=== PATIENT | male | born 1955 | race African-American/Black ===

== ENCOUNTER 2017-06-24 07:12 | Day surgery (SDC) | payer BC ==
[~2017-06-24] VITALS: Ht 182.9 cm; Wt 65.6 kg
[2017-06-24] MEDS ORDERED: IOHEXOL 350 MG/ML 50 ML BTL (for Cath Lab) OTHER ONE (07:13)
[2017-06-24] MEDS ORDERED: IOHEXOL 350 MG/ML 100 ML BTL (for Cath Lab) OTHER ONE (07:13)
[2017-06-24 07:44] VITALS: BP 136/82; PULSE 69; RESP 18; TEMP 97.9; O2SAT 100
[2017-06-24] MEDS ORDERED: FERR200T PO (07:52)
[2017-06-24] MEDS ORDERED: ECASA81 PO (07:52)
[2017-06-24] MEDS ORDERED: METO25TA3 PO (07:52)
[2017-06-24] MEDS ORDERED: SIMV40TA PO (07:52)
[2017-06-24] MEDS ORDERED: NITR1SUB3 SL (07:52)
[2017-06-24 08:06] LABS: AUTOMATED NEUTROPHIL # 2.9 TH/MM3 (1.8-7.7); BASOPHIL # 0.1 TH/MM3 (0-0.2); BASOPHIL % 0.9 % (0.0-2.0); EOSINOPHIL # 0.6 TH/MM3 (0-0.4); EOSINOPHIL % 10.1 % (0.0-4.0); HEMOGLOBIN 14.5 GM/DL (13.0-17.0); LYMPH % 31.6 % (9.0-44.0); LYMPHOCYTE # 1.9 TH/MM3 (1.0-4.8); MEAN CELL VOLUME 94.2 FL (80.0-100.0); MEAN CORPUSCULAR HEMOGLOBIN 32.5 PG (27.0-34.0); MEAN CORPUSCULAR HGB CONC 34.5 % (32.0-36.0); MEAN PLATELET VOLUME 8.7 FL (7.0-11.0); MONO % 9.1 % (0.0-8.0); MONOCYTE # 0.6 TH/MM3 (0-0.9); NEUT % 48.3 % (16.0-70.0); PLATELET COUNT 195 TH/MM3 (150-450); RED BLOOD COUNT 4.45 MIL/MM3 (4.50-5.90); RED CELL DISTRIBUTION WIDTH 16.4 % (11.6-17.2); WHITE BLOOD COUNT 6.1 TH/MM3 (4.0-11.0)
[2017-06-24 08:16] LABS: PROTHROMBIN TIME - PATIENT 10.3 SEC (9.8-11.6)
[2017-06-24 08:52] LABS: BICARBONATE 26.2 MEQ/L (21.0-32.0); CALCIUM 8.8 MG/DL (8.5-10.1); CREATININE 1.29 MG/DL (0.60-1.30)
[2017-06-24] MEDS ORDERED: NS 1000P @30 MLS/HR (KVO) IV SCH (09:00)
[2017-06-24] MEDS ORDERED: VERAPAMIL HCL 5 MG/2 ML VIAL ONE (10:09)
[2017-06-24] MEDS ORDERED: NITROGLYCERIN INJ 5 ML ONE (10:09)
[2017-06-24] MEDS ORDERED: HEPARIN SODIUM - IV 10,000 UNITS/10 ML VIAL ONE (10:09)
[2017-06-24] MEDS ORDERED: MIDAZOLAM HCL 2 MG/2 ML VIAL ONE (10:17)
--- NOTE | 2017-06-24 11:26 | CATHPROC ---
Heart Metabolics HIS Report Study Information Study Number Admission Scheduled Start Study Start [id number] Jun 24 2017 7:12AM 06/24/2017 Jun 24 2017 10:09AM [place] [facility] Cardiac Catheterization Admit Source Facility Department Other [facility] - [employer] Physician and Clinical Staff Initial Molina Rangel Radiation Control Technician Neeraj Quiros,GARRICK Radiation Control Technician Barrie MCCAULEY, Kapil Other cathlab, cathlab Recorder Maria Esther Phillips,EMERGENCY MEDICAL TECHNICIAN TECH2 Recorder Vickie Solorio,(R) (BS) Scrub Dimitri Clifford RCIS(BS) Procedures Performed Procedure Location (Site) Vessel Name Coronary Angiograms LCA Left Coronary Coronary Angiograms RCA Right Coronary L Heart Cath Wire insertion Radial (right) Radial Art. Equipment Time Lithograph Printer Description Size Mfg Part Number Used/Scraped TRANSDUCER, TRUWAVE [id number] 10:37 BECKHAM BIGGS * Used W/CHADWICKCK *[id number] *[id number] 10:37 TipRanks PACK, CCL CUSTOM * Used *[id number] 10:37 TipRanks SUPPORT, ARTERIAL ADULT 48094 *[id number] Used [id number] 10:43 MEDTRONIC JL 4.0 DXTERITY CATHETER FR 5 Used *[id number] 10:38 MEDTRONIC JR 4.0 DXTERITY CATHETER FR 5 [id number] Used [id number] 10:58 MEDTRONIC/AVE EBU 3.5 Z2 GUIDE CATHETER FR 6 Used *[id number] BAND, RADIAL COMPRESSION TR [id number] 11:15 VocoMD MEDICAL 24CM Used SHORT 24 *[id number] 10:37 VocoMD MEDICAL WIRE, EXCHANGE 260CM 3MMJ 260CM Used *[id number] 10:37 NAMIC MANIFOLD, 4 PORT * Used *[id number] 10:37 NYCOMED OMNIPAQUE, 350 MG, 150ML 150ML [id number] Used [id number] 10:37 HOOPER MEDICAL BLANKET,WARM AIR CCL * Used *[id number] SHEATH, FR6 TRANSRADIAL RM*[id number] 10:37 TERTURN8 MEDICAL FR 6 Used SLENDER 10CM *[id number] 10:58 VOLCANO PRIME WIRE, VERRATA 185CM 185CM [id number] *[id number] Used 11:07 VOLCANO PRIME WIRE, VERRATA 185CM 185CM [id number] *[id number] Used History: Current Medications Medication Dosage/Unit Route Frequency Last Date/Time Taken ASA NTG SL History: Allergies Allergy Reaction No Known Allergies History: Risk Factors Family History of Hypertension Dyslipidemia Previous UT Previous Heart Failure Premature CAD No No No No No Prior Valve Prior PCI Prior PCIDate Prior CABG Surgery No Yes 07/01/2015 No Cerebrovascular Peripheral Artery Chronic Lung On Dialysis Diabetes Disease Disease Disease No No No No No History: Symptoms/Diagnosis Selection Items Chest pain History: CV Disease Selection Items Known CAD History: Stress Tests Stress or Imaging Studies Performed Yes Standard Exercise Stress Test No Stress Echo No Stress Test SPECT No Stress Test CMR Stress Test CMR Result Stress Test CMR Ischemia Risk/Extent Yes Positive Intermediate Cardiac CTA Coronary Calcium Score No No History: Other Disease Selection Items CAD History: UT/CV Data Previous Cath Date 07/01/2015 History: Other Current Smoker Method No Cigars Comment 3 CIGARS A DAY X 58 YEARS Labs Hgb (g/dl) Hct (%) WBC (l/cumm) Platelets (thousands) 11.60-17.00 35.00-51.00 4.00-11.00 150.00-450.00 14.5 42 6.1 195 Glucose (mg/dl) BUN (mg/dl) Creatinine (mg/dl) BUN:Creatinine (1:x) 74.00-106.00 7.00-18.00 0.50-1.30 10.00-20.00 78 14 1.2 11.7 Na (meq/l) K (meq/l) Cl (meq/l) CO2 (mmol/L) Ca (mg/dl) 136.00-145.00 3.50-5.10 98.00-107.00 21.00-32.00 8.50-10.10 138 4.1 105 26.2 8.8 PT (sec) PTT (sec) INR (PTT:PT) 9.80-11.60 24.30-30.10 0.90-1.10 10.3 24.7 1 CPK-MB (ng/ML) 0.50-3.60 Not Drawn Medication Medication Total Dose (Bolus/Oral) Medication Total Dosage/Unit 1% XYLOCAINE 10 mL FENTANYL 25 mcg HEPARIN 4000 units RADIAL COCKTAIL 5 mL (Bolus) VERSED 0.5 mg Medications (Bolus/Oral) Medication Time Given Dosage/Unit Administered By Reason 1% XYLOCAINE 06/24/2017 10:30:14 AM 10 mL Molina Queen 10 mL 1% XYLOCAINE given in lab by Molina Queen in Right Radial via Subcutaneous. Ordered by Molina Diana. Ntg 200mcg Verapamil 2.5mg Heparin VERSED 06/24/2017 10:30:42 AM 0.5 mg Neeraj Quiros 3000U 0.5 mg VERSED given in lab by Neeraj Quiros, GARRICK via Peripheral IV. Ordered by Molina Queen R esdras: Ntg 200mcg Verapamil 2.5mg Heparin 2600U. FENTANYL 06/24/2017 10:30:57 AM 25 mcg Neeraj Quiros 25 mcg FENTANYL given in lab by Neeraj Quiros RN via Peripheral IV. Ordered by Molina Queen. RADIAL COCKTAIL 06/24/2017 10:36:05 AM 5 mL (Bolus) Molina Queen 5 mL (Bolus) RADIAL COCKTAIL given in lab by Molina Queen in Right Radial via Radial. Using [S olution Name]. Ordered by Molina Queen. 2600 UNITS HEPARIN.200 NITRO, 2.5 VERAPAMIL HEPARIN 06/24/2017 11:00:40 AM 4000 units Neeraj Quiros 4000 units HEPARIN given in lab by Neeraj Quiros RN in Left Antecubital via Peripheral IV. Ordered by Molina Queen Medication (Drip) Medication Time Given Dosage/Unit Concentration/Unit Diluent (ml) Solution IV Solutions 06/24/2017 10:12:55 AM 0 mL (IV) 250 NaCl .9 Patient arrived on IV Solutions given by Molina Queen in Left Antecubital via Peripheral IV. P ump/Drip Flow = 20 ml/hr using NaCl .9. Ordered by Molina Queen Initial Case Assessment Cardiovascular HR NIBP 73 149/79 Edema Present Skin color Skin None Normal Warm Circulatory - Right Pulses Dorsalis Pedis Femoral Radial 2 2 2 Scale (0,1,2,3,4,d) Circulatory - Left Pulses Dorsalis Pedis Femoral Radial 2 Scale (0,1,2,3,4,d) Neurological State Oriented to time-place- Alert Moves all extremities person Respiration - General Respiration Rate SpO2 (%) (B/min) 11 100 Chronological Log Time Study Chronological Log 10:10:06 Patient arrived via Bed. 10:10:13 Allens test performed on the right radial and ulnar artery. Vitals capture started with the following parameters, Patient=Adult, Interval=5 min, Initial Pr dvqvhs=083 mmHg, 10:12:37 Deflation Rate=5 mmHg, Cuff placed on Left Arm 10:12:40 Patient Name, D.O.B, / Armband Verified By R.N. 10:12:45 Consent signed by the physician and the patient and verified by the [employer] staff. 10:12:47 Patient has been NPO for More than 6Hrs. 10:12:48 NO Skin Breakdown- 10:12:49 Patient Warmer Placed on the Table. 10:12:50 Marilu Prominences Protected 10:12:54 A # 20 IV was noted in the Antecubital (left). Grade = 0 Patient arrived on IV Solutions given by Molina Queen in Left Antecubital via Peripheral IV. Pump/Drip Flow = 20 10:12:55 ml/hr using NaCl .9. Ordered by Molina Queen. 10:13:20 HR=70 bpm, NTKD=163/79 mmhg, SpO2=99 %, Resp=11 B/min, Pain=0, Dejuan=10, Reyes=2 10:15:11 Reference ECG taken 10:15:29 History and physical on the chart or being dictated. Assessment: Initial Case, HR=73 BPM, RYTF=292/79 mmhg, Edema=None, Color=Normal, Skin = Warm Right Pulses: Sergio Ped=2, Femoral=2, Radial=2 10:15:30 Left Pulses: Sergio Ped=2 Neurological: State=Alert, Ox3, KERR Respiration: Resp=11 B/min, ImL4=732 % 10:18:15 HR=73 bpm, TIFB=900/81 mmhg, HsC2=117 %, Resp=10 B/min, Pain=0, Dejuan=10, Reyes=2 10:23:10 HR=73 bpm, EXPH=284/76 mmhg, MxB9=494.0 %, Resp=10 B/min, Pain=0, Dejuan=10, Reyes=2 10:23:12 Right groin prepped with 2% chlorhexidine, and draped after a 3 min. waiting time. 10:23:50 Pressure channel 1 zeroed. 10:28:11 HR=69 bpm, VBOD=681/78 mmhg, WyY1=903.0 %, Resp=12 B/min, Pain=0, Dejuan=10, Reyes=2 Time Out. Correct patient, correct procedure, correct physician, power injector not loaded with contrast with surgical 10:29:28 team present. Time Out Concurred by MD and individual staff in procedure. 10:30:12 Case Start 10 mL 1% XYLOCAINE given in lab by Molina Queen in Right Radial via Subcutaneous. Ordere d by Bret, 10:30:14 Molina Taylor 0.5 mg VERSED given in lab by Neeraj Quiros RN via Peripheral IV. Ordered by Faustino Queen Reason: Ntg 10:30:42 200mcg Verapamil 2.5mg Heparin 2600U. 10:30:57 25 mcg FENTANYL given in lab by Neeraj Quiros RN via Peripheral IV. Ordered by Molina Queen 10:33:10 HR=82 bpm, PCJH=839/78 mmhg, SpO2=96.0 %, Resp=11 B/min, Pain=0, Dejuan=10, Reyes=2 10:36:00 Access site was Radial Artery. A SHEATH, FR6 TRANSRADIAL SLENDER 10CM FR 6 was advanced into the Radial (right) using the Pura fied Seldinger 10:36:03 technique. 5 mL (Bolus) RADIAL COCKTAIL given in lab by Molina Queen in Right Radial via Radial. Us ing [Solution Name]. 10:36:05 Ordered by Molina Queen 2600 UNITS HEPARIN.200 NITRO, 2.5 VERAPAMIL A JR 4.0 DXTERITY CATHETER FR 5 was advanced over a wire. OMNIPAQUE, 350 MG, 150ML 150ML was us ed for 10:37:55 injections. 10:38:13 HR=83 bpm, QHYZ=450/61 mmhg, SpO2=97.0 %, Resp=14 B/min Recorded Pressure: LV, HR=81, Condition=Condition 1 10:38:42 (Left Ventricle) LV 89/1/3 Recorded Pressure: LV, Ao, HR=80, Condition=Condition 1 10:38:53 (Left Ventricle) LV 92/1/3, (Aorta) Ao 90/59/73 After removing the current catheter a JL 4.0 DXTERITY CATHETER FR 5 was advanced over a WIRE, E XCHANGE 260CM 10:40:40 3MMJ 260CM. 10:43:10 HR=75 bpm, GTSK=690/71 mmhg, SpO2=98.0 %, Resp=13 B/min, Pain=0, Dejuan=10, Reyes=2 10:43:15 The LCA was injected and visualized at various angles. OMNIPAQUE, 350 MG, 150ML 150ML used . Recorded Pressure: Ao, HR=75, Condition=Condition 1 10:45:42 (Aorta) Ao 104/63/81 10:48:11 HR=68 bpm, SZYC=743/64 mmhg, SpO2=98.0 %, Resp=13 B/min, Pain=0, Dejuan=10, Reyes=2 10:53:14 HR=70 bpm, TLCX=872/68 mmhg, SpO2=98.0 %, Resp=13 B/min, Pain=0, Dejuan=10, Reyes=2 After removing the current catheter a 3DRC INFINITI CATHETER FR 5 was advanced over a WIRE, EXC HANGE 260CM 10:54:16 3MMJ 260CM. 10:57:33 The RCA was injected and visualized at various angles. OMNIPAQUE, 350 MG, 150ML 150ML used . 10:58:09 HR=77 bpm, OXXN=738/76 mmhg, SpO2=99.0 %, Resp=13 B/min, Pain=0, Dejuan=10, Reyes=2 After removing the current catheter a EBU 3.5 Z2 GUIDE CATHETER FR 6 was advanced over a WIRE, EXCHANGE 10:58:10 260CM 3MMJ 260CM. 10:59:53 Pressure channel 1 zeroed. 4000 units HEPARIN given in lab by Neeraj Quiros, GARRICK in Left Antecubital via Peripheral IV. Or dered by Molina Queen 11:00:40 G. 11:02:26 A PRIME WIRE, VERRATA 185CM 185CM was inserted via Radial (right). 11:03:10 HR=72 bpm, RUPQ=864/74 mmhg, Resp=14 B/min, Pain=0, Dejuan=10, Reyes=2 11:06:05 Wire removed 11:07:37 A PRIME WIRE, VERRATA 185CM 185CM was inserted via Radial (right). 11:08:13 HR=68 bpm, EYDO=701/75 mmhg, SpO2=98.0 %, Resp=12 B/min, Pain=0, Dejuan=10, Reyes=2 11:12:37 Flow Wire was was placed in the LAD Mid. The IFR measures 0.81 Percent. 11:13:14 HR=69 bpm, SYZX=442/74 mmhg, SpO2=99.0 %, Resp=13 B/min, Pain=0, Dejuan=10, Reyes=2 11:13:26 Wire removed 11:14:36 A WIRE, EXCHANGE 260CM 3MMJ 260CM was inserted via Radial (right). 11:14:46 Catheter was removed 11:14:48 Wire removed 11:15:14 Case End 11:16:04 Catheter(s) removed without difficulty Radial Compression Device Used. 12 mLs of air placed in BAND, RADIAL COMPRESSION TR SHORT 24 2 4CM. Affected 11:16:09 hand 98 % O2 saturation. 11:16:23 No case complications noted. 11:16:27 Bedside Report will be given. 11:16:32 A Left Heart Cath was performed. 11:16:46 DOCU called. Spoke to Alexandro. 11:18:15 HR=76 bpm, YDZU=252/70 mmhg, OvA0=530.0 %, Resp=16 B/min, Pain=0, Dejuan=10, Reyes=2 11:23:20 Vitals capture stopped. End Study - Contrast Media Used In Study Contrast Total Opened (mL) Total Used (mL) Total Wasted (mL) Omnipaque 120 120 0 End Study - Maximum Contrast Load Max Contrast Load (mL) 273.3 End Study - Radiation Exposure Fluoro Time (minutes) 10.4 End Study - Sheaths Sheaths Pulled By Sheath Hold Time (min) Dimitri Clifford End Study - Patient Disposition Complications Transferred To Interventional Outcome No [employer] Holding No attempt made
[2017-06-24] MEDS ORDERED: SODIUM CHLOR 0.9% 1000 ML INJ 1,000 ML IV SCH (11:27)
[2017-06-24] MEDS ORDERED: MISC INFORMATION XX ONE (11:30)
[2017-06-24] MEDS ORDERED: INSULIN REGULAR (IV INFUSION) 100 UNITS in SODIUM CHLORIDE 0.9% INJ 99 ML IV PRN (13:30)
[2017-06-24] MEDS ORDERED: DEXTROSE 50% IN WATER 50 ML VIAL(D50) IV PUSH PRN (13:30)
[2017-06-24] MEDS ORDERED: ceFAZolin 2 GM PREMIX 50 ML IV SCH (13:30)
[2017-06-24] MEDS ORDERED: PAPAVERINE INJ 60 MG, NITROGLYCERIN INJ 100 MCG, DILTIAZEM INJ 100 MG in SODIUM CHLORID... IRRIGATION SCH (13:30)
[2017-06-24] MEDS ORDERED: CEFAZOLIN INJ 500 MG in SODIUM CHLORIDE 0.9% IRR BTL 500 ML IRRIGATION SCH (13:30)
[2017-06-24] MEDS ORDERED: CHLORHEXIDINE GLUCONATE 4% SOLN 120 ML BTL TOPICAL SCH (13:30)
[2017-06-24] MEDS ORDERED: SODIUM CHLORIDE 0.9% FLUSH 10 ML FLUSH IV FLUSH PRN (13:30)
[2017-06-24] MEDS ORDERED: METOPROLOL TARTRATE 25 MG TAB PO SCH (13:30)
[2017-06-24] MEDS ORDERED: MUPIROCIN 2% OINT 1 APPLIC/GM SYR EACH NARE SCH (13:30)
--- NOTE | 2017-06-24 13:37 | PD.CONS ---
History of Present Illness Service CT Surgery Consult Requested By Dr. Queen Reason for Consult Multivessel CAD, chest pain Primary Care Physician No Primary Care Physician Diagnoses: (1) CAD (coronary artery disease) (2) Chest pain History of Present Illness 61 y/o male presents with exertional angina. He has a long h/o CAD s/p PCI and stent placement ~2 yrs ago in the [facility]. He states he has had exertional chest pressure/pain with mild exertion. He underwent LHC today which shows multivessel CAD with EF ~50%. He is being considered for CABG. Review of Systems Constitutional: COMPLAINS OF: Fatigue, DENIES: Diaphoretic episodes, Fever, Weight gain, Weight loss, Chills, Dizziness, Change in appetite, Night Sweats Endocrine: DENIES: Heat/cold intolerance, Polydipsia, Polyuria, Polyphagia Eyes: DENIES: Blurred vision, Diplopia, Eye inflammation, Eye pain, Vision loss , Photosensitivity, Double Vision Ears, nose, mouth, throat: DENIES: Tinnitus, Hearing loss, Vertigo, Nasal discharge, Oral lesions, Throat pain, Hoarseness, Ear Pain, Running Nose, Epistaxis, Sinus Pain, Toothache, Odynophagia Respiratory: DENIES: Apneas, Cough, Snoring, Wheezing, Hemoptysis, Sputum production, Shortness of breath Cardiovascular: COMPLAINS OF: Chest pain, DENIES: Palpitations, Syncope, Dyspnea on Exertion, PND, Lower Extremity Edema, Orthopnea, Claudication Gastrointestinal: DENIES: Abdominal pain, Black stools, Bloody stools, Constipation, Diarrhea, Nausea, Vomiting, Difficulty Swallowing, Anorexia Genitourinary: DENIES: Sexual dysfunction, Urinary frequency, Urinary incontinence, Urgency, Hematuria, Dysuria, Nocturia, Penile Discharge, Testicular Pain, Testicular Swelling Musculoskeletal: DENIES: Joint pain, Muscle aches, Stiffness, Joint Swelling, Back pain, Neck pain Integumentary: DENIES: Abnormal pigmentation, Nail changes, Pruritus, Rash Hematologic/lymphatic: DENIES: Bruising, Lymphadenopathy Immunologic/allergic: DENIES: Eczema, Urticaria Neurologic: DENIES: Abnormal gait, Headache, Localized weakness, Paresthesias, Seizures, Speech Problems, Tremor, Poor Balance Psychiatric: DENIES: Anxiety, Confusion, Mood changes, Depression, Hallucinations, Agitation, Suicidal Ideation, Homicidal Ideation, Delusions Past Family Social History Allergies: Coded Allergies: No Known Allergies (Unverified , 06/24/17) Past Medical History HTN Hyperlipidemia Reported Medications simvastatin SL NTG Ferrous sulfate Lopressor Family History Unremarkable Social History h/o tobacco abuse Denies ETOH, drugs Physical Exam Vital Signs Vital Signs Date Time Temp Pulse Resp B/P (MAP) Pulse Ox O2 Delivery O2 Flow Rate FiO2 06/24/17 11:32 99 Room Air 06/24/17 07:44 97.9 69 18 136/82 (100) 100 Physical Exam GENERAL: This is a well-nourished, well-developed patient, in no apparent distress. SKIN: No rashes, ecchymoses or lesions. Cool and dry. HEAD: Atraumatic. Normocephalic. No temporal or scalp tenderness. EYES: Pupils equal round and reactive. Extraocular motions intact. No scleral icterus. No injection or drainage. ENT: Nose without bleeding, purulent drainage or septal hematoma. Throat without erythema, tonsillar hypertrophy or exudate. Uvula midline. Airway patent. NECK: Trachea midline. No JVD or lymphadenopathy. Supple, nontender, no meningeal signs. CARDIOVASCULAR: Regular rate and rhythm without murmurs, gallops, or rubs. RESPIRATORY: Clear to auscultation. Breath sounds equal bilaterally. No wheezes , rales, or rhonchi. GASTROINTESTINAL: Abdomen soft, non-tender, nondistended. No hepato-splenomegaly , or palpable masses. No guarding. MUSCULOSKELETAL: Extremities without clubbing, cyanosis, or edema. No joint tenderness, effusion, or edema noted. No calf tenderness. Negative Homans sign bilaterally. NEUROLOGICAL: Awake and alert. Cranial nerves II through XII intact. Motor and sensory grossly within normal limits. Five out of 5 muscle strength in all muscle groups. Normal speech. Laboratory Laboratory Tests Test 06/24/17 07:50 White Blood Count 6.1 Red Blood Count 4.45 Hemoglobin 14.5 Hematocrit 42.0 Mean Corpuscular Volume 94.2 Mean Corpuscular Hemoglobin 32.5 Mean Corpuscular Hemoglobin Concent 34.5 Red Cell Distribution Width 16.4 Platelet Count 195 Mean Platelet Volume 8.7 Neutrophils (%) (Auto) 48.3 Lymphocytes (%) (Auto) 31.6 Monocytes (%) (Auto) 9.1 Eosinophils (%) (Auto) 10.1 Basophils (%) (Auto) 0.9 Neutrophils # (Auto) 2.9 Lymphocytes # (Auto) 1.9 Monocytes # (Auto) 0.6 Eosinophils # (Auto) 0.6 Basophils # (Auto) 0.1 CBC Comment DIFF FINAL Differential Comment Prothrombin Time 10.3 Prothromb Time International Ratio 1.0 Activated Partial Thromboplast Time 24.7 Blood Urea Nitrogen 14 Creatinine 1.29 Random Glucose 78 Calcium Level 8.8 Sodium Level 138 Potassium Level 4.1 Chloride Level 105 Carbon Dioxide Level 26.2 Anion Gap 7 Estimat Glomerular Filtration Rate 68 Result Diagram: 06/24/17 0750 06/24/17 0750 Imaging Last Impressions Lower Extremity Ultrasound 06/24/17 0000 Signed Impressions: Service Date/Time: Saturday, June 24, 2017 14:19 - CONCLUSION: 1. Vein mapping as above. Arden Joyner MD Chest X-Ray 06/24/17 0000 Signed Impressions: Service Date/Time: Saturday, June 24, 2017 15:30 - CONCLUSION: Negative for an acute process. Surgical clips epigastrium. Vish Joyner MD FACR Carotid Artery Ultrasound 06/24/17 0000 Signed Impressions: Service Date/Time: Saturday, June 24, 2017 14:01 - CONCLUSION: 1. Heavily calcified plaque involving both carotid arteries with less than 50%% stenoses noted. 2. Antegrade flow involving both vertebral arteries. Osvaldo Maradiaga Jr., MD Course Patient will be scheduled for CABG next week Assessment and Plan Problem List: (1) CAD (coronary artery disease) ICD Codes: I25.10 - Atherosclerotic heart disease of [place] coronary artery without angina pectoris (2) Chest pain ICD Codes: R07.9 - Chest pain, unspecified Assessment and Plan 61y/o male presents with recurrent exertional chest pain s/p PCI in the past. He was found to have multivessel CAD on LHC. CABG is recommended. Risks and benefits were discussed and he agrees to proceed. STS risk as follows: Risk Model and Variables - STS Adult Cardiac Surgery Database Version 2.81 RISK SCORES About the STS Risk Calculator Procedure: CAB Only Risk of Mortality: 0.53% Morbidity or Mortality: 8.943% Long Length of Stay: 2.905% Short Length of Stay: 59.197% Permanent Stroke: 0.867% Prolonged Ventilation: 5.563% DSW Infection: 0.261% Renal Failure: 1.579% Reoperation: 3.95% Plan CABG next week. Problem Qualifiers (1) CAD (coronary artery disease): Qualified Codes: I25.118 - Atherosclerotic heart disease of [place] coronary artery with other forms of angina pectoris (2) Chest pain: Qualified Codes: I20.8 - Other forms of angina pectoris Ivon Majano MD Jun 24, 2017 13:37
--- NOTE | 2017-06-24 15:30 | RADRPT ---
EXAM DATE/TIME: 06/24/2017 14:19 [facility] COMPARISON: US LEG BILATERAL VENOUS DOPPLER, June 24, 2017, 14:10. INDICATIONS : PreOp cardiac surgery. MEDICAL HISTORY : Peptic ulcer. CAD. SURGICAL HISTORY : None. ENCOUNTER: Initial ACUITY: 1 day PAIN SCORE: 1/10 LOCATION: Bilateral legs. GREATER SAPHENOUS VEIN THIGH: PROXIMAL: Right 4 mm Left 4 mm MID: Right 3 mm Left 3 mm DISTAL: Right 3 mm Left 2 mm CALF: PROXIMAL: Right Non-visualized Left 2 mm MID: Right 2 mm Left 1 mm DISTAL: Right Non-visualized Left 1 mm FINDINGS: The venous system of the lower extremities are patent by color Doppler imaging. Measurements of the leg veins (in mm) are listed above. CONCLUSION: 1. Vein mapping as above. Arden Joyner MD on June 24, 2017 at 15:28 Board Certified Radiologist. This report was verified electronically.
--- NOTE | 2017-06-24 15:33 | RADRPT ---
EXAM DATE/TIME: 06/24/2017 14:10 [facility] COMPARISON: US CAROTID ARTERIES, June 24, 2017, 14:01. INDICATIONS : PreOp cardiac surgery. MEDICAL HISTORY : Peptic ulcer. CAD. SURGICAL HISTORY : None. ENCOUNTER: Initial ACUITY: 1 day PAIN SCORE: 1/10 LOCATION: Bilateral legs. TECHNIQUE: Venous ultrasound of the left and right leg was performed from the inguinal ligament to the proximal calf. Real-time, color Doppler and spectral tracing, compression and augmentation techniques were us ed. FINDINGS: RIGHT LEG: There is normal compressibility of the deep venous system from the inguinal region to the proximal ca lf. No echogenic clot is seen in the lumen of the common femoral, femoral, popliteal, and posterior tibial veins. There is a normal response of the venous system to proximal and distal augmentation an d respiration. LEFT LEG: There is normal compressibility of the deep venous system from the inguinal region to the proximal ca lf. No echogenic clot is seen in the lumen of the common femoral, femoral, popliteal, and posterior tibial veins. There is a normal response of the venous system to proximal and distal augmentation an d respiration. CONCLUSION: 1. No DVT identified. Arden Joyner MD on June 24, 2017 at 15:30 Board Certified Radiologist. This report was verified electronically.
--- NOTE | 2017-06-24 15:36 | RADRPT ---
EXAM DATE/TIME: 06/24/2017 14:01 [facility] COMPARISON: No previous studies available for comparison. INDICATIONS : PreOp cardiac surgery. MEDICAL HISTORY : Peptic ulcer. CAD. SURGICAL HISTORY : None. ENCOUNTER: Initial ACUITY: 1 day PAIN SCORE: 10 LOCATION: Bilateral neck PEAK SYSTOLIC VELOCITIES (cm/sec): ICA/CCA RATIO: Right: 1.1 Left: 1.2 ICA: Right: 100 Left: 116 CCA: Right: 90 Left: 95 ECA: Right: 52 Left: 74 VERTEBRAL: Right: 60 antegrade Left: 74 antegrade Elevated flow velocities and ICA/CCA ratios have been found to correlate with increased degrees of vessel stenosis, calculated as percentage of diameter relative to a normal segment of distal ICA/CCA FINDINGS: RIGHT CAROTID: Calcified plaque is seen involving the carotid bulb and proximal ICA. The calcified nature generates shadowing which limits the grayscale analysis. ICA waveform is normal. LEFT CAROTID: Calcified plaque is seen involving the carotid bulb and proximal ICA. The calcified nature generates shadowing which limits the grayscale analysis. ICA waveform is normal. VERTEBRAL ARTERIES: Antegrade flow is seen in both vertebral arteries. MISCELLANEOUS: None. CONCLUSION: 1. Heavily calcified plaque involving both carotid arteries with less than 50% stenoses noted. 2. Antegrade flow involving both vertebral arteries. Osvaldo Maradiaga Jr., MD on June 24, 2017 at 15:31 Board Certified Radiologist. This report was verified electronically.
--- NOTE | 2017-06-24 15:40 | RADRPT ---
EXAM DATE/TIME: 06/24/2017 15:30 [facility] COMPARISON: No previous studies available for comparison. INDICATIONS : Short of breath, chest pain MEDICAL HISTORY : Myocardial infarction. SURGICAL HISTORY : Coronary artery stent. stomach ulcer surgery years ago. ENCOUNTER: Initial ACUITY: 1 day PAIN SCORE: 5/10 LOCATION: Bilateral chest FINDINGS: PA and lateral views of the chest demonstrate the lungs to be symmetrically aerated without evidence of mass, infiltrate or effusion. The cardiomediastinal contours are unremarkable. Osseous structure s are intact. CONCLUSION: Negative for an acute process. Surgical clips epigastrium. Vish Joyner MD FACR on June 24, 2017 at 15:37 Board Certified Radiologist. This report was verified electronically.
--- NOTE | 2017-06-24 16:10 | ECHRPT ---
Indication: chest pain CONCLUSIONS The left ventricular systolic function is normal with an estimated ejection fraction in the range of 55-60%. Normal left ventricular size. Wall thickness is normal. No regional wall motion abnormalities are present. The pulmonary valve is not well visualized. BP: / HR: Rhythm: Sinus MEASUREMENTS (Male / Female) Normal Values Technical Quality:Good 2D ECHO LV Diastolic Diameter PLAX 4.7 cm 4.2 - 5.9 / 3.9 - 5.3 cm LV Systolic Diameter PLAX 3.2 cm IVS Diastolic Thickness 0.9 cm 0.6 - 1.0 / 0.6 - 0.9 cm LVPW Diastolic Thickness 0.9 cm 0.6 - 1.0 / 0.6 - 0.9 cm LV Relative Wall Thickness 0.4 RV Internal Dim ED PLAX 2.7 cm LVOT Diameter 2.2 cm LA Systolic Diameter LX 2.9 cm 3.0 - 4.0 / 2.7 - 3.8 cm LV Ejection Fraction MOD 4C 58.3 % LV Ejection Fraction 4C AL 64.1 % M-MODE Aortic Root Diameter MM 2.7 cm AV Cusp Separation MM 2.2 cm DOPPLER AV Peak Velocity 99.1 cm/s AV Peak Gradient 3.9 mmHg LVOT Peak Velocity 61.7 cm/s LVOT Peak Gradient 1.5 mmHg AV Area Cont Eq pk 2.4 cm MV Area PHT 3.3 cm Mitral E Point Velocity 61.2 cm/s Mitral A Point Velocity 78.0 cm/s Mitral E to A Ratio 0.8 LV E' Lateral Velocity 7.3 cm/s Mitral E to LV E' Lateral Ratio 8.4 LV E' Septal Velocity 6.0 cm/s Mitral E to LV E' Septal Ratio 10.1 PV Peak Velocity 82.8 cm/s PV Peak Gradient 2.7 mmHg FINDINGS LEFT VENTRICLE The left ventricular systolic function is normal with an estimated ejection fraction in the range of 55-60%. Normal left ventricular size. Wall thickness is normal. No regional wall motion abnormalities are present. RIGHT VENTRICLE Normal right ventricular size and systolic function. LEFT ATRIUM The left atrial size is normal. RIGHT ATRIUM The right atrial size is normal. ATRIAL SEPTUM Normal atrial septal thickness without atrial level shunting by limited color doppler interrogation. AORTA The aortic root and proximal ascending aorta are normal in size on limited imaging. MITRAL VALVE Structurally normal mitral valve. No mitral valve stenosis or regurgitation. AORTIC VALVE Trileaflet aortic valve. No aortic valve stenosis or regurgitation. TRICUSPID VALVE Structurally normal tricuspid valve. No tricuspid valve stenosis or regurgitation. PULMONARY VALVE The pulmonary valve is not well visualized. VESSELS The inferior vena cava is normal in size. PERICARDIUM No pericardial effusion. Paul Minor MD (Electronically Signed) Final Date:24 June 2017 16:09
[2017-06-24 16:16] LABS: BILIRUBIN, URINE NEG (NEG); BLOOD, URINE NEG (NEG); GLUCOSE,URINE NEG (NEG); KETONE, URINE NEG (NEG); NITRITE,URINE NEG (NEG); SQUAMOUS EPITHELIAL CELL URINE <1 /hpf (0-5); URINE COLOR LIGHT-YELLOW (YELLW/STRAW); URINE LEUKOCYTE ESTERASE NEG (NEG)
--- NOTE | 2017-06-24 19:25 | EKG ---
Date Performed: 06/24/2017 Time Performed: 08:10:14 PTAGE: 61 years EKG: Sinus rhythm . Anterolateral ST elevation - possible early repolarization Borderline ECG NO PREVIOUS TRACING DOCTOR: Isabel Harrison Interpretating Date/Time 06/24/2017 19:23:09
[2017-06-24] MEDS ORDERED: SODIUM CHLORIDE 0.9% FLUSH 10 ML FLUSH IV FLUSH SCH (21:00)
--- NOTE | 2017-06-28 11:39 | MA ---
cc: SHI MASTERS VINCENT G. DO DATE 06/24/2017 PROCEDURE Left heart catheterization, coronary angiogram, ultrasound-guided access, IFR LAD, moderate sedation 45 minutes. PREPROCEDURE DIAGNOSIS Unstable angina with history of coronary artery disease, abnormal stress test. POSTPROCEDURE DIAGNOSIS Multivessel coronary artery disease. MEDICATIONS 1. Versed 0.5 mg. 2. Fentanyl 25 mcg. 3. Heparin 6600 units. 4. Verapamil 2.5 mg. 5. Nitro 200 mcg. CONTRAST USED 120 cc. FLUOROSCOPY 10.4 minutes. SEDATION Moderate sedation, 45 minutes. ESTIMATED BLOOD LOSS 10 cc. PROCEDURAL SUMMARY Robert Prabhakar is a pleasant 61-year-old male who sees my partner Dr. Masters in the office and was recommended cardiac catheterization as he has had episodes of continual chest pain on antianginal medications. The risks, benefits and alternatives were explained to him and he consented as such. He was brought to the lab and prepped in the usual sterile fashion. The right radial artery was accessed using a modified Seldinger technique and placement of a 5/6 Nepali Slender sheath. This was easily aspirated and flushed. A JR4 was advanced over a J-wire to the ascending aorta and across the aortic valve for measurement of left ventricular pressure. This was pulled back across the aortic valve showing no significant gradient of aortic stenosis. The JR4 was unable to cannulate the right coronary artery so this was exchanged out for a JL4 which was used for selective angiography of the left coronary artery system. The JL4 was then exchanged for a 3-D RC which was used for nonselective angiography of the right coronary artery system. The patient was noted to have multiple areas of concern and I felt that it was reasonable to further investigate the LAD for its significance as it was a moderate lesion and if positive, consider coronary artery bypass grafting. An EBU 3.5 guide catheter was engaged in the left main. Additional heparin was given as an anticoagulant. An IFR wire was then placed into the distal LAD. The IFR was measured at 0.81 showing significant stenosis. The wire was removed. Final angiogram showed no disruption of coronary anatomy. The guide was removed over a J-wire. The patient left the catholic priest cardiovascularly stable. FINDINGS Left Main: Normal size vessel with 40% disease distally. It bifurcates into an LAD and circumflex. LAD: Normal size vessel. In the proximal portion there appears to be a 70-80% lesion. IFR of this was 0.81 showing significant stenosis. It gives off two small diagonals with the first one having 70% disease in the proximal portion and the second one having no significant disease. Left Circumflex: Normal size vessel. There is a stent noted in the proximal portion with 90% in-stent restenosis. It gives off one small first obtuse marginal with two larger second and third obtuse marginals. The second obtuse marginal is occluded with [id number] collaterals. RCA: 100% occluded in the midportion. There are noted collaterals from [id number] filling the distal posterolateral and posterior descending arteries. LVEDP is 3. IMPRESSION 1. Unstable angina. 2. Multivessel coronary artery disease. RECOMMENDATIONS 1. Mr. Prabhakar appears to have multivessel coronary artery disease with significant disease in all three vessels. Because of this he will be recommended coronary artery bypass grafting. 2. He will be seen by Dr. Majano in consultation for consideration of CABG. Will plan on checking a 2-D echo to look at his overall left ventricular function, cardiac structure and possible valvulopathies in anticipation of surgery. 3. Will plan on discharging him home and coming back electively for surgery. I instructed him that if he has further chest pain he should get to the emergency room immediately. 4. He will follow-up with Dr. Masters post surgery. Thank you for allowing me to see Robert Prabhakar. If there are any questions, please do not hesitate to call. Molina Queen DO VGP/BT /8:33 AM /11:22 AM
== END 2017-06-24 18:01 | disposition home or self-care (01) ==
LOC: HDOC 07:12 → HDIC 07:12 → HDOC 18:01
PROVIDERS: ATTEND Nuclear Medicine Nuclear Cardiology
DX: I25.110 Atherosclerotic heart disease of native coronary artery with unstable angina pectoris (principal); I25.2 Old myocardial infarction; I10 Essential (primary) hypertension; K27.9 Peptic ulcer, site unspecified, unspecified as acute or chronic, without hemorrhage or perforation; E78.5 Hyperlipidemia, unspecified; R06.02 Shortness of breath; I65.23 Occlusion and stenosis of bilateral carotid arteries; Z95.5 Presence of coronary angioplasty implant and graft; Z87.891 Personal history of nicotine dependence
CPT/HCPCS: 71046; 80048; 81001; 85025; 85610; 85730; 87641; 93005; 93306; 93458; 93571; 93880; 93970; 93998; 94010; 99152; 99153; C1769; C1887; C1893; J1644; J2250; J3010; Q9967

== ENCOUNTER 2017-07-04 05:19 | Inpatient (IN) | payer BC ==
[~2017-07-04] VITALS: Ht 182.9 cm; Wt 65.5 kg
[2017-07-04] VITALS (12 sets, daily range): BP systolic 93–126; BP diastolic 49–76; PULSE 86–96; RESP 10–18; TEMP 97.5–97.8; O2SAT 87–98
[~2017-07-04 05:19] MED LIST: ECASA81 PO; FERR200T PO; METO25TA3 PO; MULT-207 PO; SIMV40TA PO
[2017-07-04] MEDS ORDERED: SODIUM CHLORID 0.9% 500 ML IV PRN (05:45)
[2017-07-04] MEDS ORDERED: PAPAVERINE 60 MG-NITROGLYCERIN 100 MCG-DILTIAZEM 100 MG in NS 100 ML IRRIGATION SCH ×4 (05:45)
[2017-07-04] MEDS ORDERED: CHLORHEXIDINE GLUCONATE 4% SOLN 120 ML BTL TOPICAL SCH (05:45)
[2017-07-04] MEDS ORDERED: METOPROLOL TARTRATE 25 MG TAB PO SCH (05:45)
[2017-07-04] MEDS ORDERED: INSULIN REGULAR 100 UNITS in NS 100 ML IV PRN (05:45)
[2017-07-04] MEDS ORDERED: LACTATED RINGER'S 1000 ML IV PRN (05:45)
[2017-07-04] MEDS ORDERED: ceFAZolin 2 GM PREMIX 50 ML IV SCH (05:45)
[2017-07-04] MEDS ORDERED: POVIDONE IODINE 5% (ANTISEPSIS KIT) 4 APPLICATIONS EACH NARE PRN (05:45)
[2017-07-04] MEDS ORDERED: METOPROLOL TARTRATE 25 MG TAB PO PRN (05:45)
[2017-07-04] MEDS ORDERED: CEFAZOLIN 500 MG in NS IRR BTL 500 ML IRRIGATION SCH (05:45)
[2017-07-04] MEDS ORDERED: CHLORHEXIDINE GLUCONATE 2 % 1 PACK (2 CLOTHS) TOPICAL PRN (05:45)
[2017-07-04] MEDS ORDERED: DEXTROSE 50% IN WATER 50 ML VIAL(D50) IV PUSH PRN ×2 (06:00→11:15)
[2017-07-04] MEDS ORDERED: methylPREDNISolone SOD SUCC 125 MG/2 ML VIAL ONE (06:38)
[2017-07-04] MEDS ORDERED: HEPARIN SODIUM - SQ 10,000 UNITS/ML VIAL ONE (06:38)
[2017-07-04] MEDS ORDERED: VANCOMYCIN HCL 1000 MG VIAL ONE (06:39)
[2017-07-04] MEDS ORDERED: ceFAZolin 2 GM PREMIX 50 ML ONE (06:39)
[2017-07-04] MEDS ORDERED: SUGAMMADEX SODIUM 200 MG/2 ML VIAL IV PUSH ONE (06:42)
[2017-07-04] MEDS ORDERED: ACETAMINOPHEN 1000 MG/100 ML 100 ML IV ONE (06:42)
[2017-07-04] MEDS ORDERED: fentaNYL CITRATE 1000 MCG/20 ML VIAL ONE ×2 (06:42→08:40)
[2017-07-04] MEDS ORDERED: MIDAZOLAM HCL 5 MG/5 ML VIAL ONE (06:42)
[2017-07-04] MEDS ORDERED: CARDIOPLEGIC IRR 2,000 ML ONE (07:01)
[2017-07-04] MEDS ORDERED: POTASSIUM CHLORIDE 40 MEQ/20 ML VIAL ONE (07:01)
[2017-07-04] MEDS ORDERED: ALBUMIN 25% INJ 50 ML IV ONE (07:02)
[2017-07-04] MEDS ORDERED: HEPARIN SODIUM - IV 10,000 UNITS/10 ML VIAL ONE (07:02)
[2017-07-04] MEDS ORDERED: MANNITOL INJ 100 ML ONE (07:03)
[2017-07-04] MEDS ORDERED: LACTATED RINGER'S 1000 ML INJ 500 ML IV PRN (11:14)
[2017-07-04] MEDS ORDERED: CALCIUM CHLORIDE INJ 1 GM in SODIUM CHLORIDE 0.9% INJ 100 ML IV PRN (11:15)
[2017-07-04] MEDS ORDERED: ACETAMINOPHEN 650 MG SUPP RECTAL PRN (11:15)
[2017-07-04] MEDS ORDERED: RESP: RACEPINEPHRINE 2.25% 0.5 ML NEB NEB PRN (11:15)
[2017-07-04] MEDS ORDERED: ACETAMINOPHEN 325 MG TAB PO PRN (11:15)
[2017-07-04] MEDS ORDERED: hydrALAZINE HCL 20 MG/ML VIAL IV PUSH PRN (11:15)
[2017-07-04] MEDS ORDERED: SODIUM CHLORIDE 0.9% FLUSH 10 ML FLUSH IV FLUSH PRN (11:15)
[2017-07-04] MEDS ORDERED: SODIUM BICARBONATE 8.4% SOLN 50 MEQ/50 ML VIAL IV PUSH PRN ×2 (11:15)
[2017-07-04] MEDS ORDERED: POTASSIUM CHLORIDE 20 MEQ CONTROLLED RELEASE TAB PO PRN ×2 (11:15)
[2017-07-04] MEDS ORDERED: CALCIUM CHLORIDE 10% 1 GRAM/10 ML VIAL IV PUSH PRN (11:15)
[2017-07-04] MEDS ORDERED: CLEVIDIPINE INJ 50 ML IV PRN (11:15)
[2017-07-04] MEDS ORDERED: MAGNESIUM SULFATE INJ 2 GM in SODIUM CHLORIDE 0.9% INJ 100 ML IV PRN ×4 (11:15)
[2017-07-04] MEDS ORDERED: METOPROLOL TARTRATE 5 MG/5 ML VIAL IV PUSH PRN (11:15)
[2017-07-04] MEDS ORDERED: Post-op Orders (for Pharmacy) OTHER ONE (11:15)
[2017-07-04] MEDS ORDERED: RESP: ALBUTEROL 2.5 MG/IPRATROPIUM 0.5 MG NEB (PRN) NEB (11:15)
[2017-07-04] MEDS ORDERED: POTASSIUM CHLOR 20 MEQ PREMIX 100 ML IV PRN ×3 (11:15)
[2017-07-04] MEDS ORDERED: INSULIN REGULAR (IV INFUSION) 100 UNITS in SODIUM CHLORIDE 0.9% INJ 99 ML IV PRN (11:15)
[2017-07-04] MEDS ORDERED: ONDANSETRON HCL 4 MG/2 ML VIAL IV PUSH PRN (11:15)
[2017-07-04] MEDS ORDERED: KETOROLAC TROMETHAMINE 30 MG/ML (IVP) VIAL IV PUSH PRN (11:15)
[2017-07-04] MEDS ORDERED: ALBUMIN 5% INJ 250 ML IV PRN (11:15)
--- NOTE | 2017-07-04 11:29 | PD.OP ---
cc: Ivon Majano MD; Molina Queen DO Operative Report Date of Surgery: Jul 04, 2017 Preoperative Diagnosis: (1) CAD (coronary artery disease) (2) Chest pain Postoperative Diagnosis: same Procedure: CABG x 4 CASTANEDA to LAD - good SVG to D1 - good SVG to OM2 - good SVG to PDA - fair B EVH Anesthesia: Dr. Pena Surgeon: Ivon Majano Groundsman(s): Genevieve Loredo, DAMIEN Operation and Findings: The risks, benefits, complications, treatment options, and expected outcomes were discussed with the patient. The possibilities of reaction to medication, pulmonary aspiration, perforation of viscus, bleeding, recurrent infection, the need for additional procedures, failure to diagnose a condition, and creating a complication requiring transfusion or operation were discussed with the patient. The patient concurred with the proposed plan, giving informed consent. The site of surgery properly noted/marked. The patient was taken to Operating Room, identified as Robert Prabhakar and the procedure verified as CABG, EVH, ELLA. A Time Out was held and the above information confirmed. Standard monitoring lines and Santiago catheter were placed. General anesthesia was induced. The patient was prepped and draped in a sterile fashion. A median sternotomy was performed and electrocautery was used to obtain hemostasis. The left internal mammary artery was procured as a pedicle from the 7th rib to the 1st rib in the usual manner. Simultaneously left and right greater saphenous vein was procured from the left and right legs using a minimally invasive endoscopic technique. The vein was prepared for anastomosis and the leg wound was irrigated and closed in 2 layers. The pericardium was opened and a pericardial sling was created using interrupted 0 silk sutures. The patient was heparinized for cardiopulmonary bypass and the distal mammary pedicle was instrumented for anastomosis. The heart was instrumented for cardiopulmonary bypass in the usual manner. Antegrade blood cardioplegia was employed. The patient was placed on cardiopulmonary bypass. An aortic cross-clamp was applied and the heart was arrested using cold blood cardioplegia. Antegrade cardioplegia was administered after he each anastomosis. After adequate arrest, the distal right coronary circulation was investigated and the PDA was opened with a Omaha blade and found to be a 1 millimeter fair target. Saphenous vein was approximated to the PDA artery using a running 7 0 Prolene suture. The graft was measured for length and orientation and the proximal anastomosis was constructed to the ascending aorta using a running 5 0 Prolene suture after creating an aortotomy with a 5 millimeter punch. The OM2 artery was opened with a Omaha blade and found to be a 1.5 millimeter good target. Saphenous vein was approximated to the OM2 artery using a running 7 0 Prolene suture. The graft was measured for length and orientation and the proximal anastomosis was constructed to the ascending aorta using a running 5 0 Prolene suture after creating an aortotomy with a 5 millimeter punch. The 1st diagonal artery was then opened with a Omaha blade and found to be a 1.5 millimeter good target. Saphenous vein was approximated to the D1 artery using a running 7 0 Prolene suture. The graft was measured for length and orientation and was suspended from the pericardium. The distal LAD was opened with a Omaha blade and found to be a 1.5 millimeter good target. The left internal mammary artery was approximated to the LAD using a running 7 0 Prolene suture. The pedicle was attached to the epicardium using interrupted 5 0 silk suture. The patient was systemically rewarmed and received a hotshot dose of warm blood cardioplegia. The aorta was vented and the proximal anastomosis to the OM1 graft was accomplished using a running 5 0 Prolene suture after creating an aortotomy was a 5 millimeter punch. The cross-clamp was removed and all proximal and distal anastomoses were examined for hemostasis. The patient was weaned from cardiopulmonary bypass. Protamine was given. There was no adverse reaction. Decannulation was carried out without incident. Wound was checked for hemostasis which was obtained using electrocautery. A 36 Turkmen mediastinal and 32 Turkmen left pleural chest tubes were placed and secured to the skin with 0 silk suture. The sternum was closed with stainless steel wire. The fascia was closed with 1. PDS. The subcutaneous tissue was closed using a running 2-0 Vicryl suture. The skin was closed with 4-0 Monocryl. Sterile dressings were placed. At the end of the operation, all sponge, instruments, and needle counts were correct. The patient was transferred to the CVICU in stable condition. Findings: small PDA. Severe COPD XC: 65 min CPB: 72 min Drains: mediastinal x 1 pleural x 1 Complications: none Disposition: to CVICU in stable condition Ivon Majano MD Jul 04, 2017 11:29
[2017-07-04] MEDS ORDERED: ceFAZolin INJ 1,000 MG VIAL ONE (11:58)
[2017-07-04] MEDS ORDERED: PHENYLEPH/NS 1000 MCG/10 ML SYR IV ONE (12:00)
[2017-07-04] MEDS ORDERED: NS 500 ML (EXCEL BAG) INJ 500 ML IV ONE (12:00)
[2017-07-04] MEDS ORDERED: PHENYLEPHRINE HCL 10 MG/ML VIAL IV ONE (12:00)
[2017-07-04] MEDS ORDERED: SODIUM CHLOR 0.9% IV ONE (12:00)
[2017-07-04] MEDS ORDERED: PROTAMINE SULFATE 250 MG/25 ML VIAL IV ONE (12:00)
[2017-07-04] MEDS ORDERED: ePHEDrine/NS 25 MG/5 ML SYRINGE IV ONE (12:00)
[2017-07-04] MEDS ORDERED: HEPARIN SODIUM - SQ 10,000 UNITS/ML VIAL SQ ONE (12:00)
[2017-07-04] MEDS ORDERED: NORMOSOL R INJ 2,000 ML IV ONE (12:00)
[2017-07-04] MEDS ORDERED: MAGNESIUM SULFATE 1 GM/2 ML VIAL IV ONE (12:00)
[2017-07-04] MEDS ORDERED: DEXMEDETOMIDINE HCL 200 MCG/2 ML VIAL IV ONE (12:00)
[2017-07-04] MEDS ORDERED: CALCIUM CHLORIDE 10% SOLN 1 GRAM/10 ML SYR IV ONE (12:00)
[2017-07-04] MEDS ORDERED: SODIUM BICARBONATE 8.4% INJ 50 MEQ/50 ML SYR IV ONE (12:00)
[2017-07-04] MEDS ORDERED: AMIODARONE HCL 150 MG/3 ML VIAL IV ONE (12:00)
[2017-07-04] MEDS ORDERED: LACTATED RINGER'S 1000 ML INJ 3,000 ML IV ONE (12:00)
[2017-07-04] MEDS ORDERED: VECURONIUM BROMIDE 10 MG VIAL IV ONE (12:00)
[2017-07-04] MEDS ORDERED: SODIUM CHLORIDE 0.9% INJ 200 ML IV ONE (12:00)
[2017-07-04] MEDS ORDERED: AMINOCAPROIC ACID INJ 250 MG/ML 20 ML VIAL IV ONE (12:00)
--- NOTE | 2017-07-04 12:55 | RADRPT ---
EXAM DATE/TIME: 07/04/2017 12:17 [facility] COMPARISON: No previous studies available for comparison. INDICATIONS : Post CABG MEDICAL HISTORY : Myocardial infarction. SURGICAL HISTORY : CABG. Coronary artery stent. gastric ulcer surgery ENCOUNTER: Subsequent ACUITY: 2 days PAIN SCORE: Non-responsive. LOCATION: Bilateral chest FINDINGS: The patient is status post sternotomy. ET tube, NG tube, right internal jugular central line and left chest tube are well placed. No pneumothorax is seen. The heart size is normal. The lungs are clear. CONCLUSION: Tubes and lines in good position. Kale Dee MD on July 04, 2017 at 12:51 Board Certified Radiologist. This report was verified electronically.
--- NOTE | 2017-07-04 13:45 | PD.CAR.PN ---
CVT Progress Note Subjective/Hospital Course: 61 y/o male hx of exertional angina. He has a long h/o CAD s/p PCI and stent placement ~2 yrs ago in the [facility]. He states he has had exertional chest pressure /pain with mild exertion. He underwent LHC today which shows multivessel CAD with EF ~50%. He is being considered for CABG. Past Medical History HTN Hyperlipidemia GI Bleed, OA, Gout surgery: 07/04 CABG x 4, CASTANEDA to LAD - good, SVG to D1 - good, SVG to OM2 - good , SVG to PDA - fair, B EVH Objective: Vital Signs Date Time Temp Pulse Resp B/P (MAP) Pulse Ox O2 Delivery O2 Flow Rate FiO2 07/04/17 12:01 96 50 07/04/17 06:15 97.6 65 16 122/74 (90) 100 (1) CAD (coronary artery disease) (2) S/P CABG x 4 (3) Gout (4) History of GI bleed (5) Chest pain Elizabeth Mcdaniels Jul 04, 2017 13:45
--- NOTE | 2017-07-04 13:49 | HHI.FF ---
Face to Face Verification Diagnosis: (1) CAD (coronary artery disease) (2) Chest pain (3) Gout (4) History of GI bleed (5) S/P CABG x 4 Speech Therapy Instructions: Incentive spirometry Q1 hr x 10, while awake, also use acapella device hourly whole awake Sternal Breast Bone Precautions: NO pushing or pulling, ( pt must use sternal pillow to support chest with all activities and with coughing ( takes up to 3 months breast bone to heal ) Daily incision care: ok to shower daily, no tub bath. Wash all incisions with liquid dial soap, clean wash cloth to each site, rinse and pat dry. Observe for any signs of infection, such as drainage which is dark yellow, tripp, green or foul smelling. Immediately report to the surgeon any drainage from the chest incision, or legs, and for any abnormal drainage from the chest tube sites. Notify surgeon if any temp >101.5 degrees F. When specialty dressing removed/ or if you do not have one, continue to shower daily as above, then rinse and pat incision dry and paint with betadine daily x 5 days. Allow steri strips to fall off if you have any. Avoid lotions, creams, salves, oils, etc. for the first month Please see attached forms for additional instructions regarding post Open Heart specialty wound vacuum dressings. DELMI or Prevena , Dressing to be removed by Nursing staff on __07/11/[address] Majano patients , please obtain CBC, BMP, PA & Lat CXR in 2 weeks, results to Dr. Majano ( prescription will be given) ( ) (Tele: [phone]) , F/U appointment: as per CT instructions: PCP in 2 weeks, CV surgeon 2 weeks, [facility] 3-4 weeks For any questions regarding incisions/ dressing / meds / post op care or above Symptoms, Saturday 8am-5pm Heart & Vascular Surgery Office ( Dr. Cr & Dr. Majano), After Hours / Nights (5pm -8am) Weekends and Holidays Please call [facility] Card[facility] (CIC) Charge Nurse [facility] Nursing Order: Signs/symptoms of disease process Medication education-adverse effect Wound care and dressing changes Nursing assessment with vital signs Instructions: Heart and Vascular Surgery patients *Special attention to sternal dressing Mandatory frequency Assess and evaluation, 4 days in a row The next week 3X week 2 times a week for 4 weeks 1 time a week for 5 weeks Schedule Heart and Vascular patients for full 60 day certification period Initial visit Review Open Heart Surgery Discharge Instructions (Sternal precautions, Activity, Elastic hose, Incision care, Driving, Incentive spirometry, Smoking, [place], Work and other) Need Betadine to paint incision Medication reconciliation Importance of follow up care/ check on appointments Make calendar record temperature daily When to call [facility] at Home nurse, review instructions, phone list Incentive Spirometry, demonstration Visit 1- Begin discharge instruction for patient family and/ or caregiver using teach back method- Signs and symptoms of infection Disease characteristics Medicines and side effects Foods and nutrition/ appetite Infection control/ hand washing/ hygiene Visit 2- Continue teaching Discharge instructions- include additional information on smoking cessation , sternal dressing (sternal vac) Visit 3- Continue teaching- Cough and deep breathing, incision monitoring. Choose my plate Visit 4- Continue teaching- Discuss limitations Discuss how they are feeling Discuss progress toward goals Remaining visits- continue teaching and monitoring PREVENA Single Use Negative Wound Therapy System Caregiver Instruction Sheet 1. A Prevena dressing system was applied to the chest incision during surgery , to promote wound healing. It works via a suction device (negative pressure wound therapy) to remove low to moderate levels of exudate (drainage) and infectious materials. We recommend that the device stay in place for up to seven days, from day of surgery. 2. Day of Surgery___07/04/17 Day of Removal ____07/11/17 3. The dressing should only be removed by a health nursing care partner. Please arrange removal of device to coincide with Home Health visit and or with Nursing staff at Rehab 4. If skin reddening or irritation of skin occurs, or excessive drainage, please notify the Cardiovascular Surgeons office at [phone]. 5. Light showering is permissible; however the pump should be disconnected and placed in safe location, where it will not get wet. The dressing should not be exposed to direct spray or submerged in water. No bath tub / shower only. Ensure the end of the tubing attached to the dressing is facing down so that water does not enter the top of the tube. 6. To remove Prevena dressing: press purple button to turn off device / remove the suction. Then disconnect the tubing from the pump. The fixation strips should be stretched away from the skin and the dressing lifted at one corner and peeled back until it has been fully removed. 7. After removal, it is ok to shower daily using liquid dial soap and clean wash cloth, rinse and pat dry, and leave incision open to air dry. For any concerns regarding Prevena dressing, and or wounds, please contact Samara Serna, patient navigator at [phone] or notify the Cardiovascular Surgeons office at [phone]. I have seen patient Robert Prabhakar on 07/04/17. My clinical findings support the need for the requested home health care services because: Deconditioned w/ increased weakness I certify that my clinical findings support that this patient is homebound because: Post-op weakness Elizabeth Mcdaniels Jul 04, 2017 13:49
[2017-07-04] MEDS: ACETAMINOPHEN 1000 MG/100 ML 100 ML IV SCH ×2 (13:57→18:20)
[2017-07-04] MEDS ORDERED: DEXMEDETOMIDINE INJ 200 MCG in SODIUM CHLORIDE 0.9% INJ 50 ML IV PRN (14:00)
[2017-07-04] MEDS: RESP: ALBUTEROL 2.5 MG/IPRATROPIUM 0.5 MG NEB (SCH) NEB ×2 (16:11→20:00)
[2017-07-04] MEDS: METOPROLOL TARTRATE 25 MG TAB PO SCH (21:00)
[2017-07-04] MEDS ORDERED: PRAVASTATIN SOD 80 MG TAB PO SCH (21:00)
[2017-07-04] MEDS: FERROUS SULFATE 325 MG (65 MG ELEMENTAL IRON) TAB PO SCH (21:27)
[2017-07-04] MEDS: SODIUM CHLORIDE 0.9% FLUSH 10 ML FLUSH IV FLUSH SCH (21:29)
[2017-07-05] VITALS (20 sets, daily range): BP systolic 95–126; BP diastolic 47–91; PULSE 90–109; RESP 14–22; TEMP 97.4–98.5; O2SAT 93–98
[2017-07-05] MEDS: oxyCODONE/ACETAMINOPHEN 5 MG/325 MG TAB PO PRN ×6 (00:13→18:51)
[2017-07-05] MEDS: ACETAMINOPHEN 1000 MG/100 ML 100 ML IV SCH ×2 (00:14→06:45)
--- NOTE | 2017-07-05 04:38 | RADRPT ---
EXAM DATE/TIME: 07/05/2017 04:11 [facility] COMPARISON: CHEST SINGLE AP, July 04, 2017, 12:17. INDICATIONS : Post CABG MEDICAL HISTORY : Myocardial infarction. SURGICAL HISTORY : CABG. Coronary artery stent. gastric ulcer surgery ENCOUNTER: Subsequent ACUITY: 3 days PAIN SCORE: 7/10 LOCATION: Bilateral chest FINDINGS: Sternotomy wires, mediastinal tube, right jugular catheter, and left-sided chest tube again seen. The re is cardiomegaly and atelectasis at the bases. I do not see a pneumothorax. CONCLUSION: Basilar atelectasis and postsurgical changes are noted. Jozef Urbano MD on July 05, 2017 at 4:35 Board Certified Radiologist. This report was verified electronically.
[2017-07-05 04:53] LABS: HEMOGLOBIN 7.8 GM/DL (13.0-17.0); MEAN CELL VOLUME 93.6 FL (80.0-100.0); MEAN CORPUSCULAR HEMOGLOBIN 31.7 PG (27.0-34.0); MEAN CORPUSCULAR HGB CONC 33.8 % (32.0-36.0); MEAN PLATELET VOLUME 8.9 FL (7.0-11.0); PLATELET COUNT 160 TH/MM3 (150-450); RED BLOOD COUNT 2.46 MIL/MM3 (4.50-5.90); RED CELL DISTRIBUTION WIDTH 15.4 % (11.6-17.2); WHITE BLOOD COUNT 13.8 TH/MM3 (4.0-11.0)
[2017-07-05 05:02] LABS: BICARBONATE 23.5 MEQ/L (21.0-32.0); CALCIUM 7.7 MG/DL (8.5-10.1); CREATININE 1.01 MG/DL (0.60-1.30); MAGNESIUM 2.5 MG/DL (1.5-2.5)
[2017-07-05] MEDS: RESP: ALBUTEROL 2.5 MG/IPRATROPIUM 0.5 MG NEB (SCH) NEB ×4 (05:05→19:29)
[2017-07-05] MEDS ORDERED: PANTOPRAZOLE SOD 40 MG DELAYED RELEASE TAB PO SCH (06:00)
[2017-07-05] MEDS: METOPROLOL TARTRATE 25 MG TAB PO SCH ×3 (08:54→21:05)
[2017-07-05] MEDS: SODIUM CHLORIDE 0.9% FLUSH 10 ML FLUSH IV FLUSH SCH (08:55)
[2017-07-05] MEDS ORDERED: METOPROLOL TARTRATE 25 MG TAB PO SCH (09:00)
[2017-07-05] MEDS ORDERED: MULTIVITAMIN TAB PO SCH (09:00)
[2017-07-05] MEDS ORDERED: ASPIRIN EC 81 MG TABEC PO SCH (09:00)
--- NOTE | 2017-07-05 09:04 | PD.CAR.PN ---
CVT Progress Note Subjective/Hospital Course: 61 y/o male hx of exertional angina. He has a long h/o CAD s/p PCI and stent placement ~2 yrs ago in the [facility]. He states he has had exertional chest pressure /pain with mild exertion. He underwent LHC today which shows multivessel CAD with EF ~50%. He is being considered for CABG. Past Medical History HTN Hyperlipidemia GI Bleed, OA, Gout surgery: 07/04 CABG x 4, CASTANEDA to LAD - good, SVG to D1 - good, SVG to OM2 - good , SVG to PDA - fair, B EVH crystalloid 4000cc/ 470 cell saver, EBL 1000cc extubated after surgery 07/05 had 840cc bloody drainage from chest tube last pm HGB 7.8 for 2 units PRBC today with lasix/ f/u labs in am OOB PT/OT start low dose BB this pm transfer pt to stepdown later today after blood infused weaned off insulin gtt Objective: Vital Signs Date Time Temp Pulse Resp B/P (MAP) Pulse Ox O2 Delivery O2 Flow Rate FiO2 07/05/17 08:42 98.0 95 18 109/57 07/05/17 08:26 Nasal Cannula 5.00 07/05/17 03:00 97.6 98 18 112/58 (76) 97 126/48 (74) 07/05/17 03:00 97 Nasal Cannula 2.00 07/05/17 03:00 100 07/05/17 02:16 97.7 102 18 119/47 98 07/05/17 02:00 99 Nasal Cannula 2.00 07/05/17 01:50 97.8 103 18 118/49 97 07/05/17 01:00 99 Nasal Cannula 3.00 07/05/17 00:00 99 Nasal Cannula 4.00 07/04/17 23:24 90 07/04/17 23:10 97.6 86 18 106/60 (75) 87 123/51 (75) 07/04/17 23:10 93 Nasal Cannula 6.00 07/04/17 19:30 89 Nasal Cannula 5.00 07/04/17 19:30 97.5 86 18 107/58 (74) 95 111/54 (73) 07/04/17 19:00 96 07/04/17 15:20 40 07/04/17 15:20 95 Nasal Cannula 3.00 07/04/17 15:20 97 Nasal Cannula 3 07/04/17 15:00 97.8 95 10 116/76 (89) 98 126/63 (84) 07/04/17 15:00 95 07/04/17 14:15 98 40 07/04/17 13:00 89 07/04/17 12:20 89 16 119/60 (79) 95 119/60 (79) 07/04/17 12:05 50 07/04/17 12:02 89 07/04/17 12:01 96 50 07/04/17 12:00 97.8 89 16 93/54 (67) 96 93/49 (64) Labs: Laboratory Tests Test 07/04/17 23:38 07/05/17 04:02 Platelet Count 126 TH/MM3 (150-450) 160 TH/MM3 (150-450) White Blood Count 13.8 TH/MM3 (4.0-11.0) Red Blood Count 2.46 MIL/MM3 (4.50-5.90) Hemoglobin 7.8 GM/DL (13.0-17.0) Hematocrit 23.0 % (39.0-51.0) Mean Corpuscular Volume 93.6 FL (80.0-100.0) Mean Corpuscular Hemoglobin 31.7 PG (27.0-34.0) Mean Corpuscular Hemoglobin Concent 33.8 % (32.0-36.0) Red Cell Distribution Width 15.4 % (11.6-17.2) Mean Platelet Volume 8.9 FL (7.0-11.0) Blood Urea Nitrogen 15 MG/DL (7-18) Creatinine 1.01 MG/DL (0.60-1.30) Random Glucose 149 MG/DL (74-106) Calcium Level 7.7 MG/DL (8.5-10.1) Magnesium Level 2.5 MG/DL (1.5-2.5) Sodium Level 138 MEQ/L (136-145) Potassium Level 4.4 MEQ/L (3.5-5.1) Chloride Level 107 MEQ/L (98-107) Carbon Dioxide Level 23.5 MEQ/L (21.0-32.0) Anion Gap 8 MEQ/L (5-15) Estimat Glomerular Filtration Rate 90 ML/MIN (>89) Result Diagram: 07/05/1740107/05/17401 Telemetry: NSR Qwaves inf leads, unchanged (1) CAD (coronary artery disease) (2) S/P CABG x 4 Plan: ASA, statin, restart BB this pm OOB, ambulate pulm toileting nebs, ezpap , acapella (3) Gout (4) History of GI bleed Plan: ppi (5) Blood loss anemia Plan: for 2 units PRBC f/u labs in Elizabeth Garg Jul 05, 2017 09:04
[2017-07-05] MEDS ORDERED: GLUCAGON 1 MG/ML VIAL OTHER PRN (09:15)
[2017-07-05] MEDS ORDERED: DEXTROSE 50% IN WATER 50 ML VIAL(D50) IV PUSH PRN (09:15)
[2017-07-05] MEDS: INSULIN ASPART SUPPLEMENTAL SCALE SQ SCH ×4 (10:00→22:00)
[2017-07-05] MEDS: FUROSEMIDE 40 MG/4 ML VIAL IV PUSH PRN ×2 (10:25→13:14)
[2017-07-05 10:29] LABS: ALBUMIN 2.5 GM/DL (3.4-5.0); DIRECT BILIRUBIN ADULT 0.1 MG/DL (0.0-0.2)
[2017-07-05 10:30] LABS: INDIRECT BILIRUBIN 0.1 MG/DL (0.0-0.8); TOTAL BILIRUBIN ADULT 0.2 MG/DL (0.2-1.0); TOTAL PROTEIN 5.3 GM/DL (6.4-8.2)
[2017-07-05] MEDS: DOCUSATE SODIUM 100 MG CAP PO SCH ×2 (10:56→21:05)
[2017-07-05] MEDS ORDERED: PILL SPLITTER OTHER PRN (11:15)
--- NOTE | 2017-07-05 19:55 | EKG ---
Date Performed: 07/05/2017 Time Performed: 08:47:00 PTAGE: 61 years EKG: Sinus rhythm Nondiagnostic T waves in the inferior leads Possible early repolarization Since the prior tracing, t here has been no significant change Abnormal ECG PREVIOUS TRACING : 06/24/2017 08.10 DOCTOR: Elijah Shafer Interpretating Date/Time 07/05/2017 19:53:17
[2017-07-05] MEDS: ATORVASTATIN 40 MG TAB PO SCH (21:04)
[2017-07-05] MEDS: FERROUS SULFATE 325 MG (65 MG ELEMENTAL IRON) TAB PO SCH (21:05)
[2017-07-05] MEDS: SENNOSIDES 8.6 MG TAB PO SCH (21:05)
[2017-07-06] VITALS (9 sets, daily range): BP systolic 97–140; BP diastolic 59–74; PULSE 94–109; RESP 16–20; TEMP 98–98.8; O2SAT 93–99
[2017-07-06] MEDS: oxyCODONE/ACETAMINOPHEN 5 MG/325 MG TAB PO PRN ×6 (00:15→21:04)
[2017-07-06] MEDS: INSULIN ASPART SUPPLEMENTAL SCALE SQ SCH ×5 (02:00→21:02)
[2017-07-06 04:56] LABS: AUTOMATED NEUTROPHIL # 10.6 TH/MM3 (1.8-7.7); BASOPHIL # 0.1 TH/MM3 (0-0.2); BASOPHIL % 0.5 % (0.0-2.0); EOSINOPHIL # 0.3 TH/MM3 (0-0.4); HEMATOCRIT 29.3 % (39.0-51.0); HEMOGLOBIN 10.2 GM/DL (13.0-17.0); LYMPH % 10.2 % (9.0-44.0); LYMPHOCYTE # 1.3 TH/MM3 (1.0-4.8); MEAN CELL VOLUME 89.9 FL (80.0-100.0); MEAN CORPUSCULAR HEMOGLOBIN 31.2 PG (27.0-34.0); MEAN CORPUSCULAR HGB CONC 34.7 % (32.0-36.0); MEAN PLATELET VOLUME 8.2 FL (7.0-11.0); MONO % 6.1 % (0.0-8.0); MONOCYTE # 0.8 TH/MM3 (0-0.9); NEUT % 81.2 % (16.0-70.0); PLATELET COUNT 120 TH/MM3 (150-450); RED BLOOD COUNT 3.26 MIL/MM3 (4.50-5.90); RED CELL DISTRIBUTION WIDTH 15.5 % (11.6-17.2)
[2017-07-06 05:35] LABS: CALCIUM 7.6 MG/DL (8.5-10.1); CREATININE 1.3 MG/DL (0.60-1.30); MAGNESIUM 2.4 MG/DL (1.5-2.5)
[2017-07-06] MEDS: RESP: ALBUTEROL 2.5 MG/IPRATROPIUM 0.5 MG NEB (SCH) NEB ×3 (08:06→19:25)
[2017-07-06] MEDS: DOCUSATE SODIUM 100 MG CAP PO SCH ×2 (08:28→21:03)
[2017-07-06] MEDS: METOPROLOL TARTRATE 25 MG TAB PO SCH ×2 (08:29→21:05)
[2017-07-06] MEDS: ASPIRIN EC 81 MG TABEC PO SCH ×2 (08:29→08:40)
[2017-07-06] MEDS ORDERED: MAGNESIUM HYDROXIDE SUSP 30 ML CUP PO SCH (09:00)
[2017-07-06] MEDS ORDERED: POLYETHYLENE GLYCOL 17 GM PKG PO SCH (09:00)
[2017-07-06] MEDS ORDERED: MULTIVITAMINS/MINERALS THERAPEUTIC TAB PO SCH (09:00)
--- NOTE | 2017-07-06 10:23 | PD.CAR.PN ---
CVT Progress Note Subjective/Hospital Course: 61 y/o male hx of exertional angina. He has a long h/o CAD s/p PCI and stent placement ~2 yrs ago in the [facility]. He states he has had exertional chest pressure /pain with mild exertion. He underwent LHC today which shows multivessel CAD with EF ~50%. He is being considered for CABG. Past Medical History HTN Hyperlipidemia GI Bleed, OA, Gout surgery: 07/04 CABG x 4, CASTANEDA to LAD - good, SVG to D1 - good, SVG to OM2 - good , SVG to PDA - fair, B EVH crystalloid 4000cc/ 470 cell saver, EBL 1000cc extubated after surgery 07/05 had 840cc bloody drainage from chest tube last pm HGB 7.8 for 2 units PRBC today with lasix/ f/u labs in am OOB PT/OT start low dose BB this pm transfer pt to stepdown later today after blood infused weaned off insulin gtt 2/[address] draining serous fluid Ambulate and IS Transfer CPCU in am Objective: Vital Signs Date Time Temp Pulse Resp B/P (MAP) Pulse Ox O2 Delivery O2 Flow Rate FiO2 07/06/17 08:09 99 Nasal Cannula 6.00 07/06/17 08:00 92 Nasal Cannula 6.00 07/06/17 08:00 98.3 108 20 140/59 (86) 94 07/06/17 05:16 14 07/06/17 04:59 14 07/06/17 03:00 98.1 109 16 125/74 (91) 93 07/06/17 03:00 93 Nasal Cannula 6.00 07/06/17 03:00 109 07/05/17 23:00 98.4 105 14 120/68 (85) 95 07/05/17 23:00 105 07/05/17 23:00 95 Nasal Cannula 6.00 07/05/17 19:29 94 Nasal Cannula 5.00 07/05/17 19:00 98.5 101 14 117/68 (84) 94 07/05/17 19:00 94 Nasal Cannula 6.00 07/05/17 19:00 101 07/05/17 18:00 93 20 07/05/17 16:23 Arterial Line 07/05/17 16:12 98.1 93 18 108/65 (79) 93 Arterial Line 07/05/17 16:12 93 07/05/17 16:12 93 07/05/17 16:12 93 Nasal Cannula 5.00 Humidified 07/05/17 16:00 16 07/05/17 13:30 98.1 100 16 125/66 94 07/05/17 12:00 90 07/05/17 12:00 92 Nasal Cannula 4.00 07/05/17 12:00 106 07/05/17 12:00 98.2 90 18 125/66 (85) 94 07/05/17 11:37 98.2 91 22 112/68 07/05/17 11:15 109 16 122/66 95 07/05/17 11:00 98.2 102 20 111/63 07/05/17 10:44 98.0 106 18 117/66 95 07/05/17 10:23 97.8 103 16 119/64 94 Labs: Laboratory Tests Test 07/06/17 04:35 White Blood Count 13.0 TH/MM3 (4.0-11.0) Red Blood Count 3.26 MIL/MM3 (4.50-5.90) Hemoglobin 10.2 GM/DL (13.0-17.0) Hematocrit 29.3 % (39.0-51.0) Mean Corpuscular Volume 89.9 FL (80.0-100.0) Mean Corpuscular Hemoglobin 31.2 PG (27.0-34.0) Mean Corpuscular Hemoglobin Concent 34.7 % (32.0-36.0) Red Cell Distribution Width 15.5 % (11.6-17.2) Platelet Count 120 TH/MM3 (150-450) Mean Platelet Volume 8.2 FL (7.0-11.0) Neutrophils (%) (Auto) 81.2 % (16.0-70.0) Lymphocytes (%) (Auto) 10.2 % (9.0-44.0) Monocytes (%) (Auto) 6.1 % (0.0-8.0) Eosinophils (%) (Auto) 2.0 % (0.0-4.0) Basophils (%) (Auto) 0.5 % (0.0-2.0) Neutrophils # (Auto) 10.6 TH/MM3 (1.8-7.7) Lymphocytes # (Auto) 1.3 TH/MM3 (1.0-4.8) Monocytes # (Auto) 0.8 TH/MM3 (0-0.9) Eosinophils # (Auto) 0.3 TH/MM3 (0-0.4) Basophils # (Auto) 0.1 TH/MM3 (0-0.2) CBC Comment DIFF FINAL Differential Comment Blood Urea Nitrogen 20 MG/DL (7-18) Creatinine 1.30 MG/DL (0.60-1.30) Random Glucose 107 MG/DL (74-106) Calcium Level 7.6 MG/DL (8.5-10.1) Magnesium Level 2.4 MG/DL (1.5-2.5) Sodium Level 133 MEQ/L (136-145) Potassium Level 4.5 MEQ/L (3.5-5.1) Chloride Level 101 MEQ/L (98-107) Carbon Dioxide Level 27.0 MEQ/L (21.0-32.0) Anion Gap 5 MEQ/L (5-15) Estimat Glomerular Filtration Rate 68 ML/MIN (>89) Result Diagram: 07/06/17 0435 07/06/17 0435 (1) CAD (coronary artery disease) (2) S/P CABG x 4 Plan: ASA, statin, restart BB this pm OOB, ambulate pulm toileting nebs, ezpap , acapella (3) Gout (4) History of GI bleed Plan: ppi (5) Blood loss anemia Plan: for 2 units PRBC f/u labs in Kera Cr MD Jul 06, 2017 10:23
[2017-07-06] MEDS: ATORVASTATIN 40 MG TAB PO SCH (21:03)
[2017-07-06] MEDS: SENNOSIDES 8.6 MG TAB PO SCH (21:03)
[2017-07-06] MEDS: FERROUS SULFATE 325 MG (65 MG ELEMENTAL IRON) TAB PO SCH (21:04)
[2017-07-07] VITALS (8 sets, daily range): BP systolic 101–129; BP diastolic 65–79; PULSE 73–121; RESP 16–22; TEMP 98.2–98.9; O2SAT 91–100
[2017-07-07] MEDS: oxyCODONE/ACETAMINOPHEN 5 MG/325 MG TAB PO PRN ×4 (05:05→22:26)
[2017-07-07] MEDS: INSULIN ASPART SUPPLEMENTAL SCALE SQ SCH ×4 (07:30→22:44)
--- NOTE | 2017-07-07 08:41 | PD.CAR.PN ---
CVT Progress Note Subjective/Hospital Course: 61 y/o male hx of exertional angina. He has a long h/o CAD s/p PCI and stent placement ~2 yrs ago in the [facility]. He states he has had exertional chest pressure /pain with mild exertion. He underwent LHC today which shows multivessel CAD with EF ~50%. He is being considered for CABG. Past Medical History HTN Hyperlipidemia GI Bleed, OA, Gout surgery: 07/04 CABG x 4, CASTANEDA to LAD - good, SVG to D1 - good, SVG to OM2 - good , SVG to PDA - fair, B EVH crystalloid 4000cc/ 470 cell saver, EBL 1000cc extubated after surgery 07/05 had 840cc bloody drainage from chest tube last pm HGB 7.8 for 2 units PRBC today with lasix/ f/u labs in am OOB PT/OT start low dose BB this pm transfer pt to stepdown later today after blood infused weaned off insulin gtt 07/[address] draining serous fluid Ambulate and IS Transfer CPCU in am 07/07 Doing well [address] yesterday. Maintain to suction Transfer CPCU Objective: Vital Signs Date Time Temp Pulse Resp B/P (MAP) Pulse Ox O2 Delivery O2 Flow Rate FiO2 07/07/17 06:12 18 07/07/17 03:15 18 07/07/17 03:00 103 07/07/17 03:00 98.9 105 18 129/79 (96) 93 07/07/17 03:00 93 Nasal Cannula 6.00 Humidified 07/06/17 23:13 98.3 94 16 103/68 (80) 93 07/06/17 23:12 94 Nasal Cannula 6.00 Humidified 07/06/17 23:11 99 07/06/17 22:51 18 07/06/17 19:25 94 Nasal Cannula 6.00 07/06/17 19:00 101 07/06/17 19:00 98.8 102 20 97/72 (80) 94 07/06/17 19:00 94 Nasal Cannula 6.00 Humidified 07/06/17 16:00 92 Nasal Cannula 6.00 Humidified 07/06/17 16:00 98.0 98 18 103/72 (82) 93 07/06/17 12:00 92 Nasal Cannula 6.00 07/06/17 12:00 98.0 98 18 103/72 (82) 93 Result Diagram: 07/06/1743407/06/17434 (1) CAD (coronary artery disease) (2) S/P CABG x 4 Plan: ASA, statin, restart BB this pm OOB, ambulate pulm toileting nebs, ezpap , acapella (3) Gout (4) History of GI bleed Plan: ppi (5) Blood loss anemia Plan: for 2 units PRBC f/u labs in am Kera Cr MD Jul 07, 2017 08:41
[2017-07-07] MEDS ORDERED: GLUCAGON 1 MG/ML VIAL OTHER PRN (08:45)
[2017-07-07] MEDS ORDERED: SOD PHOSPHATE/SOD BIPHOSPHATE (ADULT) ENEMA 133ML RECTAL PRN ×2 (08:45→09:15)
[2017-07-07] MEDS ORDERED: DEXTROSE 50% IN WATER 50 ML VIAL(D50) IV PUSH PRN (08:45)
[2017-07-07] MEDS ORDERED: BISACODYL 10 MG SUPP RECTAL PRN ×2 (08:45→09:15)
[2017-07-07] MEDS: ASPIRIN EC 81 MG TABEC PO SCH (11:00)
[2017-07-07] MEDS: MAGNESIUM HYDROXIDE SUSP 30 ML CUP PO SCH (11:00)
[2017-07-07] MEDS: METOPROLOL TARTRATE 25 MG TAB PO SCH ×2 (11:01→22:27)
[2017-07-07] MEDS: MULTIVITAMINS/MINERALS THERAPEUTIC TAB PO SCH (11:01)
[2017-07-07] MEDS: RESP: ALBUTEROL 2.5 MG/IPRATROPIUM 0.5 MG NEB (SCH) NEB ×2 (13:01→19:23)
[2017-07-07] MEDS: ATORVASTATIN 40 MG TAB PO SCH (22:25)
[2017-07-07] MEDS: SENNOSIDES 8.6 MG TAB PO SCH (22:25)
[2017-07-07] MEDS: FERROUS SULFATE 325 MG (65 MG ELEMENTAL IRON) TAB PO SCH (22:25)
[2017-07-07] MEDS: DOCUSATE SODIUM 100 MG CAP PO SCH (22:28)
[2017-07-08] VITALS (20 sets, daily range): BP systolic 101–121; BP diastolic 63–75; PULSE 93–131; RESP 16–20; TEMP 97.6–98.8; O2SAT 89–97
[2017-07-08] MEDS ORDERED: RESP: ALBUTEROL 2.5 MG/IPRATROPIUM 0.5 MG NEB (PRN) NEB (02:00)
[2017-07-08] MEDS: oxyCODONE/ACETAMINOPHEN 5 MG/325 MG TAB PO PRN ×3 (05:51→22:21)
[2017-07-08 06:22] LABS: AUTOMATED NEUTROPHIL # 10.5 TH/MM3 (1.8-7.7); BASOPHIL % 0.4 % (0.0-2.0); EOSINOPHIL # 0.1 TH/MM3 (0-0.4); EOSINOPHIL % 1.1 % (0.0-4.0); HEMATOCRIT 32.2 % (39.0-51.0); HEMOGLOBIN 10.9 GM/DL (13.0-17.0); LYMPH % 8.2 % (9.0-44.0); MEAN CELL VOLUME 91.5 FL (80.0-100.0); MEAN CORPUSCULAR HEMOGLOBIN 31.1 PG (27.0-34.0); MEAN PLATELET VOLUME 8.8 FL (7.0-11.0); MONO % 7.2 % (0.0-8.0); MONOCYTE # 0.9 TH/MM3 (0-0.9); NEUT % 83.1 % (16.0-70.0); PLATELET COUNT 159 TH/MM3 (150-450); RED BLOOD COUNT 3.52 MIL/MM3 (4.50-5.90); RED CELL DISTRIBUTION WIDTH 15.3 % (11.6-17.2); WHITE BLOOD COUNT 12.7 TH/MM3 (4.0-11.0)
[2017-07-08 06:57] LABS: BICARBONATE 29.9 MEQ/L (21.0-32.0); CALCIUM 8.8 MG/DL (8.5-10.1); CREATININE 1.07 MG/DL (0.60-1.30); MAGNESIUM 2.9 MG/DL (1.5-2.5)
[2017-07-08] MEDS: RESP: ALBUTEROL 2.5 MG/IPRATROPIUM 0.5 MG NEB (SCH) NEB ×3 (07:10→20:45)
[2017-07-08] MEDS: ASPIRIN EC 81 MG TABEC PO SCH (09:07)
[2017-07-08] MEDS: METOPROLOL TARTRATE 25 MG TAB PO SCH ×2 (09:07→22:20)
[2017-07-08] MEDS: MULTIVITAMINS/MINERALS THERAPEUTIC TAB PO SCH (09:07)
[2017-07-08] MEDS: DOCUSATE SODIUM 100 MG CAP PO SCH ×2 (09:07→21:00)
[2017-07-08] MEDS: FUROSEMIDE 40 MG/4 ML VIAL IV PUSH SCH ×2 (09:07→16:55)
[2017-07-08] MEDS: MAGNESIUM HYDROXIDE SUSP 30 ML CUP PO SCH (09:08)
[2017-07-08] MEDS: POLYETHYLENE GLYCOL 17 GM PKG PO SCH (09:08)
--- NOTE | 2017-07-08 10:34 | PD.CAR.PN ---
CVT Progress Note CVT: POD #: 4 Subjective/Hospital Course: 61 y/o male hx of exertional angina. He has a long h/o CAD s/p PCI and stent placement ~2 yrs ago in the [facility]. He states he has had exertional chest pressure /pain with mild exertion. He underwent LHC today which shows multivessel CAD with EF ~50%. He is being considered for CABG. Past Medical History HTN Hyperlipidemia GI Bleed, OA, Gout surgery: 07/04 CABG x 4, CASTANEDA to LAD - good, SVG to D1 - good, SVG to OM2 - good , SVG to PDA - fair, B EVH crystalloid 4000cc/ 470 cell saver, EBL 1000cc extubated after surgery 07/05 had 840cc bloody drainage from chest tube last pm HGB 7.8 for 2 units PRBC today with lasix/ f/u labs in am OOB PT/OT start low dose BB this pm transfer pt to stepdown later today after blood infused weaned off insulin gtt 07/[address] draining serous fluid Ambulate and IS Transfer CPCU in am 07/07 Doing well [address] yesterday. Maintain to suction Transfer CPCU 07/08/17 Doing well no complaints Objective: Vital Signs Date Time Temp Pulse Resp B/P (MAP) Pulse Ox O2 Delivery O2 Flow Rate FiO2 07/08/17 10:10 98.8 116 20 105/70 (82) 96 07/08/17 10:10 114 07/08/17 07:10 91 Nasal Cannula 3.00 07/08/17 07:00 98.0 101 16 112/63 (79) 89 07/08/17 07:00 89 Nasal Cannula 5.00 Humidified 07/08/17 07:00 101 07/08/17 03:00 97.6 93 16 111/65 (80) 93 07/08/17 03:00 100 07/08/17 03:00 93 Nasal Cannula 4.50 Humidified 07/08/17 02:21 18 07/08/17 01:36 Nasal Cannula 6.00 07/07/17 23:00 91 Nasal Cannula 4.50 Humidified 07/07/17 23:00 98.4 102 18 101/69 (80) 91 07/07/17 23:00 100 07/07/17 19:26 100 Nasal Cannula 4.50 07/07/17 19:00 94 Nasal Cannula 4.50 Humidified 07/07/17 19:00 98.6 121 22 120/68 (85) 94 07/07/17 19:00 110 07/07/17 15:00 94 Nasal Cannula 6.00 Humidified 07/07/17 15:00 104 07/07/17 15:00 98.5 104 16 116/71 (86) 94 07/07/17 11:00 98.2 73 20 121/78 (92) 92 07/07/17 11:00 92 Nasal Cannula 6.00 Humidified 07/07/17 11:00 110 Labs: Laboratory Tests Test 07/08/17 05:25 White Blood Count 12.7 TH/MM3 (4.0-11.0) Red Blood Count 3.52 MIL/MM3 (4.50-5.90) Hemoglobin 10.9 GM/DL (13.0-17.0) Hematocrit 32.2 % (39.0-51.0) Mean Corpuscular Volume 91.5 FL (80.0-100.0) Mean Corpuscular Hemoglobin 31.1 PG (27.0-34.0) Mean Corpuscular Hemoglobin Concent 34.0 % (32.0-36.0) Red Cell Distribution Width 15.3 % (11.6-17.2) Platelet Count 159 TH/MM3 (150-450) Mean Platelet Volume 8.8 FL (7.0-11.0) Neutrophils (%) (Auto) 83.1 % (16.0-70.0) Lymphocytes (%) (Auto) 8.2 % (9.0-44.0) Monocytes (%) (Auto) 7.2 % (0.0-8.0) Eosinophils (%) (Auto) 1.1 % (0.0-4.0) Basophils (%) (Auto) 0.4 % (0.0-2.0) Neutrophils # (Auto) 10.5 TH/MM3 (1.8-7.7) Lymphocytes # (Auto) 1.0 TH/MM3 (1.0-4.8) Monocytes # (Auto) 0.9 TH/MM3 (0-0.9) Eosinophils # (Auto) 0.1 TH/MM3 (0-0.4) Basophils # (Auto) 0.0 TH/MM3 (0-0.2) CBC Comment DIFF FINAL Differential Comment Blood Urea Nitrogen 21 MG/DL (7-18) Creatinine 1.07 MG/DL (0.60-1.30) Random Glucose 66 MG/DL (74-106) Calcium Level 8.8 MG/DL (8.5-10.1) Magnesium Level 2.9 MG/DL (1.5-2.5) Sodium Level 132 MEQ/L (136-145) Potassium Level 5.3 MEQ/L (3.5-5.1) Chloride Level 96 MEQ/L (98-107) Carbon Dioxide Level 29.9 MEQ/L (21.0-32.0) Anion Gap 6 MEQ/L (5-15) Estimat Glomerular Filtration Rate 85 ML/MIN (>89) Result Diagram: 07/08/1752407/08/17524 Cardiovascular: RRR Telemetry: ST Pulmonary: Few wheezes bilat GI/: NABS, NT Incision: dry and intact CT: 100ml/12hrs Plan: Remove chest tubes Wean oxygen diurese Encourage ambulation Transfer to rehab in AM (1) CAD (coronary artery disease) (2) S/P CABG x 4 Plan: ASA, statin, restart BB this pm OOB, ambulate pulm toileting nebs, ezpap , acapella (3) Gout (4) History of GI bleed Plan: ppi (5) Blood loss anemia Plan: for 2 units PRBC f/u labs in am Ivon Majano MD Jul 08, 2017 10:34
[2017-07-08] MEDS: SENNOSIDES 8.6 MG TAB PO SCH (21:00)
[2017-07-08] MEDS: FERROUS SULFATE 325 MG (65 MG ELEMENTAL IRON) TAB PO SCH (22:20)
[2017-07-08] MEDS: ATORVASTATIN 40 MG TAB PO SCH (22:21)
[2017-07-09] VITALS (19 sets, daily range): BP systolic 104–148; BP diastolic 62–78; PULSE 95–122; RESP 17–20; TEMP 98–98.3; O2SAT 96–97
--- NOTE | 2017-07-09 05:28 | RADRPT ---
EXAM DATE/TIME: 07/09/2017 03:37 [facility] COMPARISON: CHEST SINGLE AP, July 05, 2017, 4:11. INDICATIONS : Short of breath. MEDICAL HISTORY : Myocardial infarction. SURGICAL HISTORY : CABG. Coronary artery stent. gastric ulcer surgery ENCOUNTER: Subsequent ACUITY: 4 - 6 days PAIN SCORE: 0/10 LOCATION: Bilateral chest FINDINGS: Portable AP view of the chest demonstrates a normal-sized cardiac silhouette in this patient post med yanick sternotomy. The right internal jugular central line has been removed as have the mediastinal drai n and left chest tube. No pneumothorax is identified. There is mild bibasilar airspace opacity, stabl e from the prior study. CONCLUSION: 1. No pneumothorax following left chest tube removal. 2. There is stable mild bibasilar opacity representing either atelectasis or airspace consolidation. Kale Morales MD on July 09, 2017 at 5:26 Board Certified Radiologist. This report was verified electronically.
[2017-07-09] MEDS: RESP: ALBUTEROL 2.5 MG/IPRATROPIUM 0.5 MG NEB (SCH) NEB (07:54)
[2017-07-09] MEDS: FUROSEMIDE 40 MG/4 ML VIAL IV PUSH SCH (08:39)
[2017-07-09] MEDS: DOCUSATE SODIUM 100 MG CAP PO SCH (08:39)
[2017-07-09] MEDS: MULTIVITAMINS/MINERALS THERAPEUTIC TAB PO SCH (08:40)
[2017-07-09] MEDS: POLYETHYLENE GLYCOL 17 GM PKG PO SCH (08:40)
[2017-07-09] MEDS: oxyCODONE/ACETAMINOPHEN 5 MG/325 MG TAB PO PRN ×2 (08:40→12:30)
[2017-07-09] MEDS: ASPIRIN EC 81 MG TABEC PO SCH (08:40)
[2017-07-09] MEDS: MAGNESIUM HYDROXIDE SUSP 30 ML CUP PO SCH (08:40)
[2017-07-09] MEDS: METOPROLOL TARTRATE 25 MG TAB PO SCH (08:40)
[2017-07-09] MEDS ORDERED: Albuterol-Ipratropium Neb NEB (12:35)
[2017-07-09] MEDS ORDERED: OXYC1TAB63 PO (12:35)
[2017-07-09] MEDS ORDERED: DOCU1CAP39 PO (12:35)
--- NOTE | 2017-07-09 13:39 | HHI.DS ---
Discharge Summary Admission Date Jul 04, 2017 at 05:19 Discharge Date: Jul 09, 2017 Admitting Diagnosis Angina, CAD, COPD (1) Angina pectoris Diagnosis: Principal ICD Codes: I20.9 - Angina pectoris, unspecified (2) COPD (chronic obstructive pulmonary disease) Diagnosis: Secondary ICD Codes: J44.9 - Chronic obstructive pulmonary disease, unspecified (3) CAD (coronary artery disease) Diagnosis: Principal ICD Codes: I25.10 - Atherosclerotic heart disease of [place] coronary artery without angina pectoris (4) Gout Diagnosis: Secondary ICD Codes: M10.9 - Gout, unspecified (5) Hyperlipidemia Diagnosis: Secondary ICD Codes: E78.5 - Hyperlipidemia, unspecified (6) HTN (hypertension) Diagnosis: Secondary ICD Codes: I10 - Essential (primary) hypertension (7) Tobacco abuse Diagnosis: Secondary ICD Codes: Z72.0 - Tobacco use Procedures CABG Brief History 61 y/o male with longstanding tobacco abuse, HTN, hyperipidemia, presents with exertional chest pain. He underwent cardiac cath and was found to have 3 vessel CAD. He presents for CABG. CBC/BMP: 07/08/17 0525 07/08/17 0525 Significant Findings Laboratory Tests Test 07/08/17 05:25 White Blood Count 12.7 TH/MM3 (4.0-11.0) Red Blood Count 3.52 MIL/MM3 (4.50-5.90) Hemoglobin 10.9 GM/DL (13.0-17.0) Hematocrit 32.2 % (39.0-51.0) Neutrophils (%) (Auto) 83.1 % (16.0-70.0) Lymphocytes (%) (Auto) 8.2 % (9.0-44.0) Neutrophils # (Auto) 10.5 TH/MM3 (1.8-7.7) Blood Urea Nitrogen 21 MG/DL (7-18) Random Glucose 66 MG/DL (74-106) Magnesium Level 2.9 MG/DL (1.5-2.5) Sodium Level 132 MEQ/L (136-145) Potassium Level 5.3 MEQ/L (3.5-5.1) Chloride Level 96 MEQ/L (98-107) Estimat Glomerular Filtration Rate 85 ML/MIN (>89) Imaging Last Impressions Chest X-Ray 07/09/17 0600 Signed Impressions: Service Date/Time: Sunday, July 09, 2017 03:37 - CONCLUSION: 1. No pneumothorax following left chest tube removal. 2. There is stable mild bibasilar opacity representing either atelectasis or airspace consolidation. Kale Morales MD PE at Discharge Chest - few exp wheezes COR - RRR ABD - soft, NT COR - RRR wound - dry and intact Hospital Course surgery: 07/04 CABG x 4, CASTANEDA to LAD - good, SVG to D1 - good, SVG to OM2 - good , SVG to PDA - fair, B EVH crystalloid 4000cc/ 470 cell saver, EBL 1000cc extubated after surgery 07/05 had 840cc bloody drainage from chest tube last pm HGB 7.8 for 2 units PRBC today with lasix/ f/u labs in am OOB PT/OT start low dose BB this pm transfer pt to stepdown later today after blood infused weaned off insulin gtt 07/[address] draining serous fluid Ambulate and IS Transfer CPCU in am 07/07 Doing well [address] yesterday. Maintain to suction Transfer CPCU 07/08/17 Doing well no complaints 07/09/17 Ready for transfer to SNF as he lives alone and has no one nearby to help him with ADLs. Pt Condition on Discharge: Good Discharge Disposition: Discharge to SNF Discharge Instructions DIET: Follow Instructions for: Heart Healthy Diet Activities you can perform: Weight Bearing as Carolyn, Shower Only-No Bath Activities to avoid: Lifting/Bending, Strenuous Activity, Driving Follow up Referrals: Cardiology - [address] Fernandez De Anda Address: [address] [place] [address] PCP Follow-up Surgical - 2 Weeks with Elizabeth Mcdaniels New Orders: BASIC METABOLIC PROF - 2 Weeks CBC NO DIFF - 2 Weeks X-RAY CHEST PA & LAT - 2 Weeks New Medications: Docusate Sodium (Dok) 100 Mg Cap 100 MG PO BID for Constipation, #28 CAP 0 Refills Oxycodone HCl/Acetaminophen (Oxycodone-Acetaminophen 5-325) 5 Mg-325 Mg Tablet 1 TAB PO Q4H PRN for PAIN SCALE 1 TO 5, #30 TAB [Albuterol-Ipratropium Neb] () 1 AMPULE NEBU 1 AMPULE NEB Q4HR NEB PRN for SHORTNESS OF BREATH, #1 INHALER 2 Refills Continued Medications: Aspirin DR (Aspirin DR) 81 Mg Tabdr 81 MG PO DAILY, TAB 0 Refills Ferrous Sulfate (Feosol) 325 Mg (65 Mg Iron) Tab 325 MG PO HS for Nutritional Supplement, #30 TAB 0 Refills Metoprolol Tartrate (Metoprolol Tartrate) 25 Mg Tab 25 MG PO BID, #60 TAB 0 Refills Multiple Vitamin (One Daily) 1 Tab 1 TAB PO DAILY for Nutritional Supplement, TAB 0 Refills Simvastatin (Simvastatin) 40 Mg Tab 40 MG PO HS for Cholesterol Management, #30 TAB 0 Refills Ivon Majano MD Jul 09, 2017 13:39
[2017-07-09] MEDS ORDERED: METOPROLOL TARTRATE 25 MG TAB PO SCH (21:00)
== END 2017-07-09 18:02 | DRG 236 ==
LOC: HSDI 05:19 → HCVI 12:00 → HCPC 07-08 10:30
PROVIDERS: ADMIT Thoracic Surgery (Cardiothoracic Vascular Surgery); ATTEND Thoracic Surgery (Cardiothoracic Vascular Surgery)
PROC: 06BP4ZZ Excision of Right Saphenous Vein, Percutaneous Endoscopic Approach (ICD-10-PCS; 2017-07-04)
PROC: 06BQ4ZZ Excision of Left Saphenous Vein, Percutaneous Endoscopic Approach (ICD-10-PCS; 2017-07-04)
PROC: 5A1221Z Performance of Cardiac Output, Continuous (ICD-10-PCS; 2017-07-04)
PROC: B246ZZ4 Ultrasonography of Right and Left Heart, Transesophageal (ICD-10-PCS; 2017-07-04)
PROC: 30233N1 Transfusion of Nonautologous Red Blood Cells into Peripheral Vein, Percutaneous Approach (ICD-10-PCS; 2017-07-04)
PROC: 02100Z9 Bypass Coronary Artery, One Artery from Left Internal Mammary, Open Approach (ICD-10-PCS; principal; 2017-07-04 07:10)
PROC: 021209W Bypass Coronary Artery, Three Arteries from Aorta with Autologous Venous Tissue, Open Approach (ICD-10-PCS; 2017-07-04 07:10)
DX: I25.119 Atherosclerotic heart disease of native coronary artery with unspecified angina pectoris (principal); J44.9 Chronic obstructive pulmonary disease, unspecified; I10 Essential (primary) hypertension; M10.9 Gout, unspecified; E78.5 Hyperlipidemia, unspecified; Z72.0 Tobacco use; Z87.11 Personal history of peptic ulcer disease; Z95.5 Presence of coronary angioplasty implant and graft
CPT/HCPCS: 36430; 71045; 76937; 80048; 80076; 82948; 83735; 85025; 85027; 85049; 86850; 86900; 86901; 86920; 93005; 93318; 94002; 94150; 94618; 94640; 94664; 94667; 94668; J0131; J0282; J0690; J1644; J1815; J1817; J1885; J1940; J2150; J2250; J2370; J2440; J2720; J2930; J3010; J3370; J3475; J3480; J7040; J7050; J7120; P9016; P9035; P9047